=== PATIENT | female | born 1965 | race Hispanic/Latino ===

== ENCOUNTER 2017-05-15 20:41 | Observation (INO) | payer BC, OTHER ==
[2017-05-15 21:01] VITALS: BMI 28.7
--- NOTE | 2017-05-15 21:05 | ED PDOC ---
Arrival/HPI - General Time Seen by Provider: 05/15/17 20:43 Historian: Patient - History of Present Illness Narrative History of Present Illness (Text): 05/15/17 21:02 Essence Goodwin is a 51 year old female, with a history of depression, presents to the emergency department complaining of intermittent chest discomfort radiating to left hand and jaw for past couple of days. Describes quality of discomfort as a burning sensation. Denies any history of headache, dizziness, shortness of breath, fever, chills, nausea, vomiting, diarrhea, diaphoresis, urinary symptoms , or any other complaints at this time. Time/Duration: Other (couple of days ) Symptom Onset: Gradual Symptom Course: Intermittent Severity Level: Mild Activities at Onset: Light Past Medical History - Provider Review Nursing Documentation Reviewed: Yes - Infectious Disease Hx of Infectious Diseases: None - Cardiac Hx Pacemaker: No - Pulmonary Hx Asthma: Yes - Neurological Hx Paralysis: No - HEENT Hx HEENT Disorder: No - Renal Hx Renal Disorder: No - Endocrine/Metabolic Hx Endocrine Disorders: No - Hematological/Oncological Hx Blood Transfusions: No Hx Blood Transfusion Reaction: No - Integumentary Hx Dermatological Disorder: No - Musculoskeletal/Rheumatological Hx Falls: No - Gastrointestinal Hx Crohn's Disease: Yes (dx 2006) - Genitourinary/Gynecological Hx Genitourinary Disorders: No - Psychiatric Hx Substance Use: Yes (cocaine abuse clean 8 years) - Surgical History Other/Comment: rt breast lumpectomy benign, ovarian surgery, r salpingoophorectomy, prototype carpenter lap x3, 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, bakers tube - Anesthesia Hx Anesthesia Reactions: No - Suicidal Assessment Feels Threatened In Home Enviroment: No Family/Social History - Physician Review Nursing Documentation Reviewed: Yes Family/Social History: No Known Family HX Smoking Status: Former Smoker Hx Alcohol Use: No Hx Substance Use: Yes (cocaine abuse clean 8 years) Allergies/Home Meds Allergies/Adverse Reactions: Allergies codeine Allergy (Verified 09/09/16 07:21) NAUSEA Home Medications: Home Meds Medication Instructions Recorded Confirmed Escitalopram [Lexapro] 5 mg PO QAM 02/05/15 09/09/16 buPROPion [Wellbutrin] 300 mg PO QAM 02/05/15 09/09/16 clonazePAM HALF TAB [Klonopin- 0.25 mg PO BID PRN 02/05/15 09/09/16 HALF TAB] Mesalamine [Pentasa] 250 mg PO BID 09/09/16 09/09/16 Review of Systems - Physician Review All systems were reviewed & negative as marked: Yes - Review of Systems Constitutional: Normal. absent: Fatigue, Fevers Respiratory: absent: SOB, Cough, Sputum Cardiovascular: Chest Pain. absent: Palpitations Gastrointestinal: Normal. absent: Abdominal Pain, Diarrhea, Nausea, Vomiting Genitourinary Female: Normal. absent: Dysuria Musculoskeletal: Other (radiating down left arm and jaw ). absent: Back Pain, Neck Pain Neurological: Normal. absent: Headache, Dizziness Psychiatric: Normal Physical Exam Vital Signs Temp Pulse Resp BP Pulse Ox 05/15/17 21:25 98.1 F 05/15/17 21:01 77 21 142/91 H 99 Temperature: Afebrile Appearance: Positive for: Well-Appearing, Non-Toxic, Comfortable Pain Distress: None Mental Status: Positive for: Alert and Oriented X 3 - Systems Exam Head: Present: Atraumatic, Normocephalic Pupils: Present: PERRL Extroacular Muscles: Present: EOMI Conjunctiva: Present: Normal Mouth: Present: Moist Mucous Membranes Respiratory/Chest: Present: Clear to Auscultation, Good Air Exchange. No: Respiratory Distress, Accessory Muscle Use Cardiovascular: Present: Regular Rate and Rhythm, Normal S1, S2. No: Murmurs Abdomen: Present: Normal Bowel Sounds. No: Tenderness, Distention, Peritoneal Signs, Rebound, Guarding Upper Extremity: Present: Normal Inspection. No: Cyanosis, Edema Lower Extremity: Present: Normal Inspection. No: Edema Neurological: Present: GCS=15, CN II-XII Intact, Speech Normal, Motor Func Grossly Intact, Normal Sensory Function Skin: Present: Warm, Dry, Normal Color. No: Rashes Psychiatric: Present: Alert, Oriented x 3, Normal Insight, Normal Concentration Medical Decision Making ED Course and Treatment: 05/15/17 21:07 Impression: A 51 year old female who presents to the emergency department complaining of intermittent chest discomfort radiating down left arm and jaw for past couple of days. Differential Diagnosis included but are not limited to: CAD vs. ACS vs. anxiety vs. pneumonia Plan: -- EKG -- Labs, cardiac enzymes -- Chest X-ray -- Reassess and disposition Progress Notes: 05/15/17 21:27 EKG interpreted by me: NSR @ 73 bpm. Normal [place]. Normal interval. Chest X-ray interpreted by me: No acute process. 05/15/17 23:23 I reviewed the labs, and discussed the results with the patient. States that she is involved in active exercise and kick-boxing which might explain the degree of rhabdomyolysis. Patient was offered admission to the hospital for further evaluation. Will discuss with house doctor for admission. 05/15/17 23:59 Case discussed with , who is aware and agrees with the plan to observe patient at telemetry for rhabdomyolysis. Accepts patient under hospitalist service. - Lab Interpretations Lab Results: 05/15/17 22:00 05/15/17 22:00 Lab Results 05/15/17 22:00: D-Dimer, Quantitative 0.44 05/15/17 22:00: WBC 6.7 D, RBC 4.04, Hgb 11.7 L, Hct 34.6 L, MCV 85.6, MCH 29.0 , MCHC 33.8, RDW 13.1, Plt Count 381, MPV 9.1 05/15/17 22:00: Sodium 140, Potassium 3.9, Chloride 104, Carbon Dioxide 28, Anion Gap 12, BUN 10, Creatinine 0.7, Est GFR ( Amer) > 60, Est GFR (Non- Af Amer) > 60, Random Glucose 95, Calcium 9.3, Total Bilirubin 0.3, AST 209 H, ALT 171 H, Alkaline Phosphatase 86, Lactate Dehydrogenase 1164 H, Total Creatine Kinase 2705 H, CK-MB (CK-2) 17.1 H, CK-MB (CK-2) % 0.6 L, Troponin I < 0.01, Total Protein 7.0, Albumin 3.8, Globulin 3.2, Albumin/Globulin Ratio 1.2 05/15/17 22:00: PT 10.4, INR 0.96, APTT 27.8 - RAD Interpretation Radiology Orders: 05/15/17 21:28 CHEST PORTABLE [RAD] Stat - Medication Orders Current Medication Orders: Sodium Chloride (Sodium Chloride 0.9%) 1,000 mls @ 999 mls/hr IV .Q1H1M STA Stop: 05/16/17 00:22 Last Admin: 07/31/17 23:39 Dose: 999 mls/hr Discontinued Medications Aspirin (Aspirin) 325 mg PO ONCE STA Stop: 05/15/17 23:23 Last Admin: 05/15/17 23:39 Dose: 325 mg Morphine Sulfate (Morphine) 2 mg IVP STAT STA Stop: 05/15/17 23:23 Last Admin: 05/15/17 23:38 Dose: 2 mg - Scribe Statement The provider has reviewed the documentation as recorded by the Makaylaibbeba Taylor Provider Attestation: Provider Scribe Attestation: All medical record entries made by the Makaylaibbeba were at my direction and personally dictated by me. I have reviewed the chart and agree that the record accurately reflects my personal performance of the history, physical exam, medical decision making, and the department course for this patient. I have also personally directed, reviewed, and agree with the discharge instructions and disposition. Disposition/Present on Arrival - Present on Arrival Any Indicators Present on Arrival: No History of DVT/PE: No History of Uncontrolled Diabetes: No Urinary Catheter: No History Surgical Site Infection Following: None - Disposition Have Diagnosis and Disposition been Completed?: Yes Diagnosis: Chest pain, Rhabdomyolysis Disposition: HOSPITALIZED Disposition Time: 00:05 Patient Plan: Observation Condition: STABLE Discharge Instructions (ExitCare): Chest Pain (ED) Referrals: Benjamin Ceballos MD [Primary Care Provider] - Follow up with primary
[2017-05-15 22:37] LABS: HEMOGLOBIN 11.7 gm/dL (12.0-16.0); MEAN CELL VOLUME 85.6 fL (80.0-105.0); MEAN CORPUSCULAR HGB CONC 33.8 g/dl (31.0-37.0); MEAN PLATELET VOLUME 9.1 fl (7.0-11.0); RBC 4.04 10^6/uL (3.5-6.1); RED CELL DISTRIBUTION WIDTH 13.1 % (11.5-14.5); WHITE BLOOD COUNT 6.7 10^3/ul (4.5-11.0)
[2017-05-15 22:40] LABS: ALB/GLOB RATIO 1.2 (1.1-1.8); ALBUMIN 3.8 g/dL (3.0-4.8); ALT/SGPT 171 U/L (7-56); AST/SGOT 209 U/L (15-39); BLOOD UREA NITROGEN 10 mg/dL (7-21); CALCIUM 9.3 mg/dL (8.4-10.5); GFR AFRICAN-AMERICAN > 60; GFR NON-AFRICAN AMERICAN > 60
[2017-05-15 22:44] LABS: INR 0.96 (0.93-1.08); PARTIAL THROMBOPLASTIN TIME 27.8 Seconds (23.7-30.8); PROTHROMBIN TIME 10.4 Seconds (9.9-11.8)
[2017-05-15 22:54] LABS: TROPONIN I < 0.01 ng/mL
[2017-05-15 23:11] LABS: CK MB% 0.6 % (2.5-3.0); CK-MB 17.1 ng/mL (0.0-3.6)
[2017-05-15] MEDS ORDERED: Morphine 2 mg/ml ISec IVP STA (23:22)
[2017-05-15] MEDS ORDERED: Sodium Chloride 0.9% 1,000 ML IV STA (23:22)
[2017-05-16] MEDS ORDERED: Sodium Chloride 0.9% 1,000 ML IV SCH (00:48)
--- NOTE | 2017-05-16 01:56 | CP.PCM.HP ---
Addendum entered and electronically signed by Suhail Tom DO 05/16/17 07:17: Agree with Dr. Gibbs's exam and plan. 51 yo F with Crohn's, Depression, and MVP presenting with chest pain and incidentally found to have rhabdomyolysis. Undergoing ACS rule-out and pending UDS to rule out substance induced rhabdo. Pending Cardiac eval and recs. Original Note: <LOBITO GIBBS - Last Filed: 05/16/17 01:59> History of Present Illness - History of Present Illness History of Present Illness: CC: Chest pain HPI: Ms. Goodwin is a 51 year old female, with a past medical history of depression, MVP, and Crohn's Disease, who presented to the ED complaining of intermittent chest discomfort radiating to left hand and jaw for the past couple of days. She states that there was no inciting event and she experiences the pain at rest. She was seen at her PMD's office on 05/11 for this reason as well as back pain and routine lab work was drawn but no interventions were necessary at that time. She describes the pain as pressure/burning that comes and goes with radiation to left hand and left jaw line. She reports no alleviating or aggravating factors. She reports that she came in because there were "just too many things going" and out of fear due to her family history of cardiac disease. She sees a plant breeder scientist, Dr. Chapa, and has had both a normal ECHO and exercise stress test within the last year, according to patient. She states that she sees a plant breeder scientist because of her history of MVP. Currently, patient is not experiencing any chest pain. Patient was found to have a CK of over 2000 while in ED, however. She denies any headache, dizziness , shortness of breath, fever, chills, nausea, vomiting, diarrhea, urinary symptoms, or any other complaints at this time. PMH: Depression, Crohn's Disease, LBP, and MVP PSH: Rt breast lumpectomy benign, ovarian surgery, r salpingoophorectomy, sheet rock taper lap x3, 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, bakers tube FamHx: Dad-CABG x3 SocHx: Currently smokes 1/4 pack per day, drinks 1-2 bud light limes 2 days per week and is currently not using any illicit drugs (8 years clean of cocaine use) Allergies: Codeine Home Medications: Lexapro, Wellbutrin, clonazepam, mesalamine PMD: Dr. Ceballos Present on Admission - Present on Admission Any Indicators Present on Admission: No Review of Systems - Review of Systems Review of Systems: Please refer to HPI Past Patient History - Infectious Disease Hx of Infectious Diseases: None - Past Social History Smoking Status: Former Smoker - CARDIAC Hx Pacemaker: No - PULMONARY Hx Asthma: Yes - NEUROLOGICAL Hx Paralysis: No - HEENT Hx HEENT Problems: No - RENAL Hx Chronic Kidney Disease: No - ENDOCRINE/METABOLIC Hx Endocrine Disorders: No - HEMATOLOGICAL/ONCOLOGICAL Hx Blood Transfusions: No Hx Blood Transfusion Reaction: No - INTEGUMENTARY Hx Dermatological Problems: No - MUSCULOSKELETAL/RHEUMATOLOGICAL Hx Falls: No - GASTROINTESTINAL Hx Crohn's Disease: Yes (dx 2006) - GENITOURINARY/GYNECOLOGICAL Hx Genitourinary Disorders: No - PSYCHIATRIC Hx Substance Use: Yes (cocaine abuse clean 8 years) - SURGICAL HISTORY Other/Comment: rt breast lumpectomy benign, ovarian surgery, r salpingoophorectomy, sheet rock taper lap x3, 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, bakers tube - ANESTHESIA Hx Anesthesia Reactions: No Meds Allergies/Adverse Reactions: Allergies Allergy/AdvReac Type Severity Reaction Status Date / Time codeine Allergy NAUSEA Verified 09/09/16 07:21 Physical Exam - Constitutional Appears: No Acute Distress - Head Exam Head Exam: NORMAL INSPECTION, NORMOCEPHALIC - Eye Exam Eye Exam: EOMI, Normal appearance - ENT Exam ENT Exam: Mucous Membranes Moist, Normal Exam - Neck Exam Neck exam: Positive for: Full Rom. Negative for: Tenderness - Respiratory Exam Respiratory Exam: Clear to Auscultation Bilateral, NORMAL BREATHING PATTERN. absent: Rales, Rhonchi, Wheezes, Respiratory Distress - Cardiovascular Exam Cardiovascular Exam: REGULAR RHYTHM, RRR, +S1, +S2. absent: Tachycardia, Systolic Murmur - GI/Abdominal Exam GI & Abdominal Exam: Normal Bowel Sounds, Soft. absent: Distended, Firm, Guarding, Tenderness - Extremities Exam Extremities exam: Positive for: normal capillary refill, pedal pulses present. Negative for: calf tenderness, pedal edema - Neurological Exam Neurological exam: Alert, Oriented x3 - Psychiatric Exam Psychiatric exam: Normal Affect, Normal Mood - Skin Skin Exam: Dry, Intact, Normal Color, Warm Results - Vital Signs Recent Vital Signs: Last Vital Signs Temp 98.1 F 05/15/17 21:25 Pulse 74 05/16/17 00:57 Resp 16 05/16/17 00:57 BP 117/86 05/16/17 00:57 Pulse Ox 96 05/16/17 00:57 - Labs Result Diagrams: 05/15/17 22:00 05/15/17 22:00 Assessment & Plan - Assessment and Plan (Free Text) Assessment: Ms. Goodwin is a 51 year old female, with a past medical history of depression, MVP, and Crohn's Disease, who presented to the ED complaining of intermittent chest discomfort radiating to left hand and jaw for the past couple of days. Plan: 1. Chest Pain -cardiology consulted, all recs appreciated (Sammi as he sees patient in clinic ) -troponins negative x1; serial troponins pending -TSH, A1C, Lipid Panel pending -EKG showed NSR and no acute changes -CXR pending -heart healthy diet 2. Rhabdomyolisis -CK found to be 2705 on admission -IVF: NS at 150mls/hour -UDS pending 3. Elevated AST/ALT -most likely associated with rhabdo -will cont to monitor and assess as rhabdo is treated 4. History of Crohn's Disease -cont home mesalamine -currently asymptomatic 5. History of Depression/Anxiety -cont home lexapro, wellbutrin and klonopin PRN 6. GI/DVT Prophylaxis -protonix/scd's Patient seen and case discussed with attending, Dr. Quevedo. - Date & Time Date: 05/16/17 Time: 01:56 <Hermelindo Quevedo - Last Filed: 05/16/17 20:05> Results - Vital Signs Recent Vital Signs: Last Vital Signs Temp 97.1 F L 05/16/17 17:37 Pulse 67 05/16/17 18:00 Resp 18 05/16/17 17:37 BP 134/87 05/16/17 17:37 Pulse Ox 99 05/16/17 05:54 - Labs Result Diagrams: 05/16/17 04:10 05/16/17 04:10 Labs: Laboratory Results - last 24 hr 05/16/17 05/16/17 05/16/17 04:10 04:10 04:10 WBC 7.1 RBC 3.98 Hgb 11.4 L Hct 34.1 L MCV 85.7 MCH 28.6 MCHC 33.4 RDW 13.3 Plt Count 364 MPV 8.9 Gran % 34.6 L Lymph % (Auto) 49.2 H Logan % (Auto) 11.1 H Eos % (Auto) 4.1 Baso % (Auto) 1.0 Gran # 2.45 Lymph # 3.5 H Logan # 0.8 H Eos # 0.3 Baso # 0.07 Sodium 141 Potassium 4.0 Chloride 108 H Carbon Dioxide 27 Anion Gap 10 BUN 8 Creatinine 0.6 Est GFR ( Amer) > 60 Est GFR (Non-Af Amer) > 60 Random Glucose 90 Hemoglobin A1c 5.8 Calcium 8.7 Total Bilirubin 0.3 AST 154 H ALT 147 H Alkaline Phosphatase 72 Total Creatine Kinase CK-MB (CK-2) CK-MB (CK-2) % Troponin I < 0.01 Total Protein 6.4 Albumin 3.4 Globulin 3.0 Albumin/Globulin Ratio 1.1 Triglycerides 195 H Cholesterol 175 LDL Cholesterol Direct 100 HDL Cholesterol 42 TSH 3rd Generation Beta HCG, Quant Alcohol, Quantitative Hepatitis A IgM Ab Hep Bs Antigen Hep B Core IgM Ab Hepatitis C Antibody 05/16/17 05/16/17 05/16/17 04:10 05:00 05:00 WBC RBC Hgb Hct MCV MCH MCHC RDW Plt Count MPV Gran % Lymph % (Auto) Logan % (Auto) Eos % (Auto) Baso % (Auto) Gran # Lymph # Logan # Eos # Baso # Sodium Potassium Chloride Carbon Dioxide Anion Gap BUN Creatinine Est GFR ( Amer) Est GFR (Non-Af Amer) Random Glucose Hemoglobin A1c Calcium Total Bilirubin AST ALT Alkaline Phosphatase Total Creatine Kinase CK-MB (CK-2) CK-MB (CK-2) % Troponin I Total Protein Albumin Globulin Albumin/Globulin Ratio Triglycerides Cholesterol LDL Cholesterol Direct HDL Cholesterol TSH 3rd Generation 3.7 Beta HCG, Quant Alcohol, Quantitative < 10 Hepatitis A IgM Ab Negative Hep Bs Antigen Negative Hep B Core IgM Ab Negative Hepatitis C Antibody Negative 05/16/17 05/16/17 05:00 14:05 WBC RBC Hgb Hct MCV MCH MCHC RDW Plt Count MPV Gran % Lymph % (Auto) Logan % (Auto) Eos % (Auto) Baso % (Auto) Gran # Lymph # Logan # Eos # Baso # Sodium Potassium Chloride Carbon Dioxide Anion Gap BUN Creatinine Est GFR ( Amer) Est GFR (Non-Af Amer) Random Glucose Hemoglobin A1c Calcium Total Bilirubin AST ALT Alkaline Phosphatase Total Creatine Kinase 1195 H CK-MB (CK-2) 9.5 H CK-MB (CK-2) % 0.8 L Troponin I < 0.01 Total Protein Albumin Globulin Albumin/Globulin Ratio Triglycerides Cholesterol LDL Cholesterol Direct HDL Cholesterol TSH 3rd Generation Beta HCG, Quant < 2.39 Alcohol, Quantitative Hepatitis A IgM Ab Hep Bs Antigen Hep B Core IgM Ab Hepatitis C Antibody Attending/Attestation - Attestation I have personally seen and examined this patient.: Yes I have fully participated in the care of the patient.: Yes I have reviewed all pertinent clinical information: Yes Notes (Text): 05/16/17 20:05 Patient was seen when he was in bed # 8 in the ER with medical nurse. Agree with history, physical examination , assessment and plan.
[2017-05-16] MEDS ORDERED: Morphine 2 mg/ml ISec IVP STA (04:29)
[2017-05-16 04:33] LABS: BASO # 0.07 K/mm3 (0.0-2.0); EOS # 0.3 (0.0-0.7); EOS % 4.1 % (1.5-5.0); GRAN # 2.45 (1.4-6.5); GRAN % 34.6 % (50.0-68.0); HEMOGLOBIN 11.4 gm/dL (12.0-16.0); LYMPH # 3.5 (1.2-3.4); LYMPH % 49.2 % (22.0-35.0); MEAN CELL VOLUME 85.7 fL (80.0-105.0); MEAN CORPUSCULAR HEMOGLOBIN 28.6 pg (25.0-35.0); MEAN CORPUSCULAR HGB CONC 33.4 g/dl (31.0-37.0); MEAN PLATELET VOLUME 8.9 fl (7.0-11.0); MONO # 0.8 (0.1-0.6); MONO % 11.1 % (1.0-6.0); PLATELET COUNT 364 10^3/uL (120.0-450.0); RBC 3.98 10^6/uL (3.5-6.1); RED CELL DISTRIBUTION WIDTH 13.3 % (11.5-14.5); WHITE BLOOD COUNT 7.1 10^3/ul (4.5-11.0)
[2017-05-16 04:39] LABS: ALB/GLOB RATIO 1.1 (1.1-1.8); ALBUMIN 3.4 g/dL (3.0-4.8); ALT/SGPT 147 U/L (7-56); AST/SGOT 154 U/L (15-39); BLOOD UREA NITROGEN 8 mg/dL (7-21); CALCIUM 8.7 mg/dL (8.4-10.5); GFR AFRICAN-AMERICAN > 60; GFR NON-AFRICAN AMERICAN > 60; HDL CHOLESTEROL 42 mg/dL (29-60)
[2017-05-16 04:50] LABS: LDL CHOLESTEROL 100 mg/dL (0-129)
[2017-05-16 05:01] LABS: TROPONIN I < 0.01 ng/mL
--- NOTE | 2017-05-16 07:59 | RAD ---
HISTORY: chest pain COMPARISON: Portable chest 11/04/2015. FINDINGS: LUNGS: No active pulmonary disease. PLEURA: No significant pleural effusion identified, no pneumothorax apparent. CARDIOVASCULAR: Normal. OSSEOUS STRUCTURES: No significant abnormalities. VISUALIZED UPPER ABDOMEN: Normal. OTHER FINDINGS: None. IMPRESSION: No acute infiltrate or pleural effusion in the interval.
[2017-05-16] MEDS ORDERED: Aminophylline 25 mg/ml Inj ONE (09:13)
--- NOTE | 2017-05-16 10:01 | CARD ---
APPROVED REPORT EKG Measurement Heart [id number] <Conclusion> Normal sinus rhythm Normal ECG Improved repolarization c/w ECG 11/04/15
[2017-05-16 12:04] LABS: HEPATITIS B SURFACE AG NEGATIVE (NEGATIVE)
[2017-05-16 12:09] LABS: HEPATITIS A IGM NEGATIVE (NEGATIVE)
[2017-05-16 12:10] LABS: HEPATITIS B CORE AB NEGATIVE (NEGATIVE)
[2017-05-16 12:22] LABS: HEPATITIS C ANTIBODY NEGATIVE (NEGATIVE)
--- NOTE | 2017-05-16 12:28 | CARD ---
APPROVED REPORT EXAM: Two-dimensional and M-mode echocardiogram with Doppler and color Doppler. INDICATION Chest Pain 2D DIMENSIONS Left Atrium (2D)3.4 (1.6-4.0cm)IVSd1.0 (0.7-1.1cm) LVDd4.1 (3.9-5.9cm)PWd1.1 (0.7-1.1cm) LVDs2.6 (2.5-4.0cm)FS (%) 37.4 % LVEF (%)67.9 (>50%) M-Mode DIMENSIONS Aortic Root2.40 (2.2-3.7cm)Aortic Cusp Exc.1.80 (1.5-2.0cm) Aortic Valve AoV Peak [id number]/Krish Peak GR.12mmHg Mitral Valve E/A ratio0.0 TDI E/Lateral E'0.0E/Medial E'0.0 Tricuspid Valve TR Peak [id number] [id number] Peak Gr.9mmHg [id number] LEFT VENTRICLE The left ventricle is normal size. There is normal left ventricular wall thickness. The left ventricular function is normal.EF-65% There is normal LV segmental wall motion. The left ventricular diastolic function is normal. No left ventricle thrombus noted on this study. There is no ventricular septal defect visualized. There is no left ventricular aneurysm. There is no mass noted in the left ventricle. RIGHT VENTRICLE The right ventricle is normal size. There is normal right ventricular wall thickness. The right ventricular systolic function is normal. ATRIA The left atrium size is normal. The right atrium size is normal. The interatrial septum is intact with no evidence for an atrial septal defect. AORTIC VALVE The aortic valve is thickened but opens well. There is trace aortic regurgitation. There is no aortic valvular stenosis. There is no aortic valvular vegetation. MITRAL VALVE The mitral valve is thickened but opens well. Mitral regurgitation is mild. There is no mitral valve stenosis. There is no evidence of mitral valve prolapse. TRICUSPID VALVE The tricuspid valve leaflets are thickened , but open well. There is mild tricuspid regurgitation.RVSP-19 mmof Hg. There is no tricuspid valve stenosis. There is no tricuspid valve prolapse or vegetation. PULMONIC VALVE The pulmonic valve is borderline thickened. There is trace pulmonic valvular regurgitation. There is no pulmonic valvular stenosis. GREAT VESSELS The aortic root is normal in size. The ascending aorta is normal in size. The pulmonary artery is normal. The IVC is normal in size and collapses >50% with inspiration. PERICARDIAL EFFUSION There is no pleural effusion. There is no pericardial effusion. <Conclusion> Normal Chamber Size. EF-65% Mild MR/TR RVSP-19 mmof Hg.
[2017-05-16] MEDS: MESALAMINE 250 MG PO SCH ×2 (12:34→18:50)
[2017-05-16] MEDS ORDERED: oxyCODONE 10 mg ER Tab (oxyCONTIN) PO SCH (13:00)
[2017-05-16 14:34] LABS: CK MB% 0.8 % (2.5-3.0); CK-MB 9.5 ng/mL (0.0-3.6)
[2017-05-16 14:48] LABS: TROPONIN I < 0.01 ng/mL
--- NOTE | 2017-05-16 19:44 | CON ---
TYPE OF DICTATION: Consult. SERVICE: Cardiology. CONSULTING PHYSICIAN: Dr. Dillon Herrera. REASON FOR CONSULTATION: Followup cardiac evaluation, admitted with left arm pain, jaw pain, rule out angina, CAD, questionable history of multiple valve prolapse. 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 Yesterday, the patient felt jaw pain and back pain; history of significant back pain, taking oxycodone, came to the emergency room, got admitted with diagnosis of chest pain. The patient denies any chest pain as per se, but complained of numbness and pain in the left arm and jaw pain. Denies any dyspnea on exertion, denies any chest pain on exertion. PAST MEDICAL HISTORY: Significant for back pain, questionable history of mitral valve prolapse as per patient. 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 Active tobacco abuse, half a pack a day. Before used to smoke half a pack, now cut down to 5 cigarettes a day, but still actively smoking. Socially drinks. ALLERGIES: TO CODEINE. CURRENT MEDICATIONS: The patient is taking at home oxycodone/acetaminophen for tooth ache as well as back pain, Klonopin 0.5 mg b.i.d., Wellbutrin 300 mg in the morning, Pentasa 250 mg daily, Levaquin 750 mg daily, Lexapro 5 mg in the morning, acyclovir 15 g topical applied b.i.d. topical cream. PREVIOUS CARDIAC WORKUP: As follows; the patient had stress test in 05/13/2015, essentially normal myocardial perfusion study, fixed anterior apical defect most likely due to breast attenuation. The patient walked on the treadmill 10 minutes 21 seconds per Lenard protocol and stopped due to fatigue, achieved 85% of predicted heart rate. No chest pain, no ST-T changes noted dated 05/13/2015, two years ago. The patient has also echocardiography done in 11/04/2015, that showed left ventricular size normal, normal LV function, normal mitral valve structure, trace mitral regurgitation, normal tricuspid valve, RV systolic pressure of 27, calculated ejection fraction of 60%, MVP not reported in that echo, read by Dr. Samaniego dated 11/04/2015. REVIEW OF SYSTEMS: As per HPI. PHYSICAL EXAMINATION VITAL SIGNS: Temperature afebrile, heart rate 64, blood pressure 126/82. HEENT: PERRLA, extraocular muscles intact. NECK: Supple. No carotid bruit. No thyromegaly. CHEST: Clear to auscultation. HEART: S1 and S2 regular. ABDOMEN: Soft. EXTREMITIES: Clubbing, cyanosis negative. LABORATORY DATA: Blood workup as follows; WBC 7.1, hemoglobin 11.4, hemoglobin 34.1, platelet count 364. Chemistry shows sodium 141, potassium 4, chloride carbon dioxide 27, anion gap of 10, BUN 8, creatinine 0.6, troponin 0.01 x2 negative. EKG shows normal sinus rhythm, acute ST-T changes noted. IMPRESSION: A 51-year-old female with past medical history of psychotic disorder, depression. 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 Denies any chest pain. Admitted today with diagnosis of chest pain. Active tobacco abuse, questionable history of mitral valve prolapse, history or multiple pain medications. RECOMMENDATIONS: Multiple disorders, coronary artery disease, suggested to have cardiac stress test. Further recommendation after this stress test and echo. We will get the lipid profile, TSH, hemoglobin A1c. Thank you Dr. Mujica, for providing me the opportunity in taking care of the patient. We will repeat the blood work up in the morning. Dillon Herrera MD
--- NOTE | 2017-05-16 20:08 | US ---
EXAM: US Abdomen Limited, Right Upper Quadrant CLINICAL HISTORY: 51 years old, female; Pain; Abdominal pain; Additional info: Ruq pain TECHNIQUE: Real-time ultrasound of the right upper quadrant with image documentation. EXAM DATE/TIME: 05/16/2017 2:25 PM COMPARISON: Prior CT abdomen of 09/09/2016 FINDINGS: Gallbladder: Appears partially contracted, which somewhat limits evaluation. Allowing for this, there is no evidence of gallstones, pericholecystic fluid, significant gallbladder wall thickening, or a positive sonographic Rodriguez's sign. Common bile duct: Does not appear abnormally dilated, measuring less than 6 mm in diameter. Liver: Demonstrates mildly increased parenchymal echogenicity, most compatible with fatty infiltration. Measures 13.9 cm in length (normal less than 16 cm). No focal liver lesions seen. Normal flow seen in the main portal vein on color and Doppler imaging. Pancreas: Incompletely seen due to gas. Imaged portions appear unremarkable. Right kidney: Within normal limits in appearance. Measures 12 cm in length. No evidence of hydronephrosis. No renal calculi are visible sonographically. IMPRESSION: No acute abnormality identified. There is no evidence of gallstones, cholecystitis, or biliary ductal dilatation. Mild fatty infiltration of the liver. See above for remaining findings.
--- NOTE | 2017-05-16 20:59 | CARD ---
APPROVED REPORT Protocol: LEXISCAN Test Type: Lexiscan Sestamibi Stress Test Attending Physician: Dr. Dillon Chapa Referring Physician: Dr. Benjamin Ceballos Test Indications: Chest Pain Height:5 ft 3 in Weight:168lbs Medications: Wellbutrin, Klonopin, Lexapro, Pentasa, Protonix Medical History: 51 y/o female with a history of depression, mitral valve prolapse, Crohn's Disease, family history of cardiac disease Target HR: 167 bpm Resting ECG: RSR. Resting Heart Rate: 63 bpm Resting Blood Pressure: 130/80mmHg Submaximum (85%): 142 bpm PROCEDURE Pharmacologic stress testing was performed using 0.4mg per 5ml of regadenoson given intravenously over 7-10 seconds. Reversal agent aminophyline 100 mg, given intravenously for Other. POST EXERCISE Reason for Termination: Protocol completed Target HR: No Max HR: 65 bpm 56% of Maximum Predicted HR: 167 bpm Exercise duration: 00:34 min:sec, 0 Stage Exercise capacity: 1.0METs Max Blood Pressure: 130/80mmHg Blood Pressure response to exercise: normal resting BP - appropriate response Heart Rate response to exercise: appropriate Chest Pain: Yes, Burning in Chest. Angina index: 0 Arrhythmia: No, none ST Change: No, none Deviation: 0 mm TEST SUMMARY [id number]. INFUSIONDOSE 100:[id number]. [id number]. INTERPRETATION Stress EKG Conclusion: IV LEXISCAN NUCLEAR STRESS TEST DURING WHICH PATIENT FELT BURNING IN CHEST. NO ST-T CHANGES SEEN. NUCLEAR SCAN REPORT PENDING. Signed by Dillon Chapa Electronically Approved: 05/16/2017 10:41:52 EXAM: Myocardial Perfusion REST/STRESS Stress Test Type: Pharmacologic Imaging Protocol Rest Spect myocardial perfusion imaging was performed in supine position 45 minutes following the injection of 10.3 mCi of Tc-99 Myoview. At peak stress, the patient was injected intravenously with 30.4mCi of Tc-99 tetrofosmin after an infusion time of 0 minutes and 10 seconds. Gated Stress Spect was performed 65 minutes after intravenous Tc-99 Myoview injection. The images were gated to evaluate regional wall motion and calculate ventricular ejection fraction.Images were reconstructed using backfilter projection method in short horizontal and verticle long axis. Spect slices were generated. LV Perfusion The quality of the study is good. The left ventricle is normal in size. The right ventricle is unremarkable. The lung uptake is normal. The distribution of tracer reveals an area of mildly to moderately decreased perfusion involving mid to distal anteroseptal wall on the stress study. The remainder of the LV myocardium is unremarkable. The rest myocardial perfusion study shows no significant change. Wall Motion Wall motion study shows good contractility of the left ventricle. LVEF = 70%. Conclusion 1. Essentially normal SPECT myocardial perfusion study. 2. Fixed, anteroseptal defect is most likely due to breast attenuation. 3. Normal gated wall motion of the left ventricle. 4. In comparison with the last study of 05/13/2015, there is no significant change.
[2017-05-17 01:45] VITALS: RESP 20
[2017-05-17 06:12] VITALS: O2SAT 97
[2017-05-17 06:15] LABS: BASO # 0.04 K/mm3 (0.0-2.0); BASO % 0.7 % (0.0-3.0); EOS # 0.2 (0.0-0.7); EOS % 3.2 % (1.5-5.0); GRAN # 3.07 (1.4-6.5); GRAN % 51.5 % (50.0-68.0); HEMOGLOBIN 12.4 gm/dL (12.0-16.0); LYMPH # 2.2 (1.2-3.4); MEAN CELL VOLUME 85.3 fL (80.0-105.0); MEAN CORPUSCULAR HEMOGLOBIN 28.8 pg (25.0-35.0); MEAN CORPUSCULAR HGB CONC 33.8 g/dl (31.0-37.0); MONO # 0.5 (0.1-0.6); MONO % 7.6 % (1.0-6.0); PLATELET COUNT 372 10^3/uL (120.0-450.0); RED CELL DISTRIBUTION WIDTH 13.3 % (11.5-14.5)
[2017-05-17 06:28] LABS: ALB/GLOB RATIO 1.1 (1.1-1.8); ALBUMIN 3.7 g/dL (3.0-4.8); ALT/SGPT 129 U/L (7-56); AST/SGOT 95 U/L (15-39); BLOOD UREA NITROGEN 8 mg/dL (7-21); CALCIUM 9.7 mg/dL (8.4-10.5); GFR AFRICAN-AMERICAN > 60; GFR NON-AFRICAN AMERICAN > 60
[2017-05-17 06:43] LABS: CK MB% 0.9 % (2.5-3.0); CK-MB 6.3 ng/mL (0.0-3.6)
[2017-05-17] MEDS: MESALAMINE 250 MG PO SCH (10:29)
[2017-05-17 12:11] VITALS: BP 134/90; PULSE 76; TEMP 98.4
--- NOTE | 2017-05-17 12:24 | PN ---
DATE: 05/17/2017 REASON FOR CONSULTATION: Followup cardiac evaluation, admitted with left arm pain, jaw pain, rule out angina, questionable history of mitral valve prolapse. The patient is lying flat in the bed. SUBJECTIVE: Denies any chest pain, shortness of breath or any palpitation; numbness of hand improved. PHYSICAL EXAMINATION GENERAL: Lying comfortable, not in apparent distress. Examination as follows. Height of the patient 5 feet 3 inches, weight of the patient 160 pounds, body mass index 28.5 kg/m2. VITAL SIGNS: Heart rate 60, blood pressure 121/61. HEENT: PERRLA, extraocular muscles intact. NECK: Supple. No carotid bruit. No thyromegaly. CHEST: Clear to auscultation. HEART: S1 and S2, regular. ABDOMEN: Soft. EXTREMITIES: Clubbing and cyanosis negative. LABORATORY DATA: Blood workup are as follows: WBC 6, hemoglobin 12.4, hematocrit of 36.7, and platelet count 372. Chemistry shows a sodium of 141, potassium 3.9, chloride 107, carbon dioxide of 26, anion gap of 12, BUN of 8, and creatinine is 0.6. Total CPK 691, total protein 7, albumin 3.7, and albumin-globulin ratio 1.1. IMPRESSION: A 51-year-old female with past medical history significant for back pain, admitted with jaw pain, numbness, chest pain. The patient underwent a stress test and echo. Stress test showed normal myocardial perfusion study. Initial plan was to do the Myoview but the patient could not walk on the treadmill, so changed to the Lexiscan that was essentially negative and compared the last study on 05/13/2015, there is no significant change. Normal myocardial perfusion study. Normal Lexiscan. The patient underwent echocardiography also yesterday that showed normal chamber size, ejection fraction 65%, mild MR, mild TR, RV systolic pressure 19. The patient admitted with elevated CPK of 300, rhabdomyolysis, claims that she does heavy exercises kicking and boxing. Echo did not show any significant mitral valve prolapse. RECOMMENDATIONS: Continue IV fluid, discontinue telemetry, possible discharge planning, consider neuro evaluation for numbness. CVA status is stable. We will discontinue telemetry. Thank you for providing the opportunity in taking care of patient, Essence Goodwin. Dillon Herrera MD [facility] # [id number]
--- NOTE | 2017-05-17 14:56 | CP.PCM.DIS ---
<Natividad Andujar - Last Filed: 05/17/17 15:12> Provider - Provider Date of Admission: 05/16/17 00:02 Attending physician: Jj Mujica MD Primary care physician: Benjamin Ceballos MD Consults: Cardiology: Sammi Time Spent in preparation of Discharge (in minutes): 30 Diagnosis - Discharge Diagnosis (1) Chest pain Status: Acute (2) Rhabdomyolysis Status: Acute Hospital Course - Lab Results Lab Results: Most Recent Lab Values WBC 6.0 10^3/ul (4.5-11.0) 05/17/17 05:40 RBC 4.30 10^6/uL (3.5-6.1) 05/17/17 05:40 Hgb 12.4 gm/dL (12.0-16.0) 05/17/17 05:40 Hct 36.7 % (36.0-48.0) 05/17/17 05:40 MCV 85.3 fL (80.0-105.0) 05/17/17 05:40 MCH 28.8 pg (25.0-35.0) 05/17/17 05:40 MCHC 33.8 g/dl (31.0-37.0) 05/17/17 05:40 RDW 13.3 % (11.5-14.5) 05/17/17 05:40 Plt Count 372 10^3/uL (120.0-450.0) 05/17/17 05:40 MPV 9.0 fl (7.0-11.0) 05/17/17 05:40 Gran % 51.5 % (50.0-68.0) 05/17/17 05:40 Lymph % (Auto) 37.0 % (22.0-35.0) H 05/17/17 05:40 Grand % (Auto) 7.6 % (1.0-6.0) H 05/17/17 05:40 Eos % (Auto) 3.2 % (1.5-5.0) 05/17/17 05:40 Baso % (Auto) 0.7 % (0.0-3.0) 05/17/17 05:40 Gran # 3.07 (1.4-6.5) 05/17/17 05:40 Lymph # 2.2 (1.2-3.4) 05/17/17 05:40 Grand # 0.5 (0.1-0.6) 05/17/17 05:40 Eos # 0.2 (0.0-0.7) 05/17/17 05:40 Baso # 0.04 K/mm3 (0.0-2.0) 05/17/17 05:40 PT 10.4 Seconds (9.9-11.8) 05/15/17 22:00 INR 0.96 (0.93-1.08) 05/15/17 22:00 APTT 27.8 Seconds (23.7-30.8) 05/15/17 22:00 D-Dimer, Quantitative 0.44 mg/L FEU (0-0.50) 05/15/17 22:00 Sodium 141 mmol/L (132-148) 05/17/17 05:40 Potassium 3.9 mmol/L (3.6-5.0) 05/17/17 05:40 Chloride 107 mmol/L (98-107) 05/17/17 05:40 Carbon Dioxide 26 mmol/L (21-33) 05/17/17 05:40 Anion Gap 12 (10-20) 05/17/17 05:40 BUN 8 mg/dL (7-21) 05/17/17 05:40 Creatinine 0.6 mg/dL (0.5-1.4) 05/17/17 05:40 Est GFR ( Amer) > 60 05/17/17 05:40 Est GFR (Non-Af Amer) > 60 05/17/17 05:40 Random Glucose 103 mg/dL (70-110) 05/17/17 05:40 Hemoglobin A1c 5.8 % (4.2-6.5) 05/16/17 04:10 Calcium 9.7 mg/dL (8.4-10.5) 05/17/17 05:40 Total Bilirubin 0.4 mg/dL (0.2-1.3) 05/17/17 05:40 AST 95 U/L (15-39) H 05/17/17 05:40 ALT 129 U/L (7-56) H 05/17/17 05:40 Alkaline Phosphatase 87 U/L (38-133) 05/17/17 05:40 Lactate Dehydrogenase 1164 U/L (333-699) H 05/15/17 22:00 Total Creatine Kinase 691 U/L (35-230) H 05/17/17 05:40 CK-MB (CK-2) 6.3 ng/mL (0.0-3.6) H 05/17/17 05:40 CK-MB (CK-2) % 0.9 % (2.5-3.0) L 05/17/17 05:40 Troponin I < 0.01 ng/mL 05/16/17 14:05 Total Protein 7.0 g/dL (5.8-8.3) 05/17/17 05:40 Albumin 3.7 g/dL (3.0-4.8) 05/17/17 05:40 Globulin 3.3 gm/dL 05/17/17 05:40 Albumin/Globulin Ratio 1.1 (1.1-1.8) 05/17/17 05:40 Triglycerides 195 mg/dL (35-160) H 05/16/17 04:10 Cholesterol 175 mg/dL (130-200) 05/16/17 04:10 LDL Cholesterol Direct 100 mg/dL (0-129) 05/16/17 04:10 HDL Cholesterol 42 mg/dL (29-60) 05/16/17 04:10 TSH 3rd Generation 3.7 MIU/ml (0.46-4.68) 05/16/17 04:10 Beta HCG, Quant < 2.39 mIU/mL (0-6.15) 05/16/17 05:00 Alcohol, Quantitative < 10 mg/dL (0-10) 05/16/17 05:00 Hepatitis A IgM Ab Negative (NEGATIVE) 05/16/17 05:00 Hep Bs Antigen Negative (NEGATIVE) 05/16/17 05:00 Hep B Core IgM Ab Negative (NEGATIVE) 05/16/17 05:00 Hepatitis C Antibody Negative (NEGATIVE) 05/16/17 05:00 - Hospital Course Hospital Course: 51 year old female, with a past medical history of depression, MVP, and Crohn's Disease, who presented to the ED complaining of intermittent chest discomfort radiating to left hand and jaw for the past couple of days. She states that there was no inciting event and she experiences the pain at rest. She was seen at her PMD's office on 05/11 for this reason as well as back pain and routine lab work was drawn but no interventions were necessary at that time. She describes the pain as pressure/burning that comes and goes with radiation to left hand and left jaw line. She reports no alleviating or aggravating factors. She reports that she came in because there were "just too many things going" and out of fear due to her family history of cardiac disease. 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 Chapa, and has had both a normal ECHO and exercise stress test within the last year, according to patient. She states that she sees a supervisor tumbling and rolling because of her history of MVP. Patient was found to have an elevated CPK at 2705. Was admitted for chest pain r /o ACS and rhabdomyolysis. Patient was monitored on Telemetry, EKG showed NSR. Troponins were negative x 3 and D-Dimer was negative. Cardiology was consulted. Patient was sent for Stress Test which showed no significant changes from previous study. Patient was started on IV fluids @ 150cc/hr. CPK levels were trended and decreased to 691. Patient was found to have elevated LFTs, abdominal US showed mild fatty infiltration of liver. LFTs were trending down. UDS was ordered for this patient, however she refused to give sample. For back pain, patient was started on Motrin 600mg Q6H with improvement. ACS was ultimately ruled out. Patient was medically stable upon discharge. Instructed to follow up with PMD and cardiology within 1 week. Patient reports that she also have an appointment to see Neurology for numbness in her hands. All questions and concerns were addressed. Discharge Exam - Head Exam Head Exam: NORMAL INSPECTION, NORMOCEPHALIC - Eye Exam Eye Exam: EOMI, Normal appearance Pupil Exam: NORMAL ACCOMODATION - ENT Exam ENT Exam: Mucous Membranes Moist - Neck Exam Neck exam: Full Rom - Respiratory Exam Respiratory Exam: Clear to PA & Lateral, NORMAL BREATHING PATTERN. absent: Rales, Rhonchi, Wheezes - Cardiovascular Exam Cardiovascular Exam: REGULAR RHYTHM, +S1, +S2 - GI/Abdominal Exam GI & Abdominal Exam: Normal Bowel Sounds, Soft. absent: Rebound, Rigid, Tenderness - Extremities Exam Extremities exam: normal inspection, pedal pulses present - Back Exam Back exam: NORMAL INSPECTION - Neurological Exam Neurological exam: Alert, Normal Gait, Oriented x3 - Psychiatric Exam Psychiatric exam: Normal Affect, Normal Mood - Skin Skin Exam: Normal Color, Warm Discharge Plan - Follow Up Plan Condition: STABLE Disposition: HOME/ ROUTINE Instructions: Chest Pain (GEN), Rhabdomyolysis (GEN) Additional Instructions: Patient is clear for discharge home, encourage PO hydration, Motrin OTC prn pain , f/u with PMD and cardiology within 1 week, patient has an appt to see neurology Referrals: Benjamin Ceballos MD [Primary Care Provider] - <Jj Mujica - Last Filed: 05/17/17 18:39> Provider - Provider Date of Admission: 05/16/17 00:02 Attending physician: Jj Mujica MD Primary care physician: Benjamin Ceballos MD Time Spent in preparation of Discharge (in minutes): 35 Hospital Course - Lab Results Lab Results: Most Recent Lab Values WBC 6.0 10^3/ul (4.5-11.0) 05/17/17 05:40 RBC 4.30 10^6/uL (3.5-6.1) 05/17/17 05:40 Hgb 12.4 gm/dL (12.0-16.0) 05/17/17 05:40 Hct 36.7 % (36.0-48.0) 05/17/17 05:40 MCV 85.3 fL (80.0-105.0) 05/17/17 05:40 MCH 28.8 pg (25.0-35.0) 05/17/17 05:40 MCHC 33.8 g/dl (31.0-37.0) 05/17/17 05:40 RDW 13.3 % (11.5-14.5) 05/17/17 05:40 Plt Count 372 10^3/uL (120.0-450.0) 05/17/17 05:40 MPV 9.0 fl (7.0-11.0) 05/17/17 05:40 Gran % 51.5 % (50.0-68.0) 05/17/17 05:40 Lymph % (Auto) 37.0 % (22.0-35.0) H 05/17/17 05:40 Grand % (Auto) 7.6 % (1.0-6.0) H 05/17/17 05:40 Eos % (Auto) 3.2 % (1.5-5.0) 05/17/17 05:40 Baso % (Auto) 0.7 % (0.0-3.0) 05/17/17 05:40 Gran # 3.07 (1.4-6.5) 05/17/17 05:40 Lymph # 2.2 (1.2-3.4) 05/17/17 05:40 Grand # 0.5 (0.1-0.6) 05/17/17 05:40 Eos # 0.2 (0.0-0.7) 05/17/17 05:40 Baso # 0.04 K/mm3 (0.0-2.0) 05/17/17 05:40 PT 10.4 Seconds (9.9-11.8) 05/15/17 22:00 INR 0.96 (0.93-1.08) 05/15/17 22:00 APTT 27.8 Seconds (23.7-30.8) 05/15/17 22:00 D-Dimer, Quantitative 0.44 mg/L FEU (0-0.50) 05/15/17 22:00 Sodium 141 mmol/L (132-148) 05/17/17 05:40 Potassium 3.9 mmol/L (3.6-5.0) 05/17/17 05:40 Chloride 107 mmol/L (98-107) 05/17/17 05:40 Carbon Dioxide 26 mmol/L (21-33) 05/17/17 05:40 Anion Gap 12 (10-20) 05/17/17 05:40 BUN 8 mg/dL (7-21) 05/17/17 05:40 Creatinine 0.6 mg/dL (0.5-1.4) 05/17/17 05:40 Est GFR ( Amer) > 60 05/17/17 05:40 Est GFR (Non-Af Amer) > 60 05/17/17 05:40 Random Glucose 103 mg/dL (70-110) 05/17/17 05:40 Hemoglobin A1c 5.8 % (4.2-6.5) 05/16/17 04:10 Calcium 9.7 mg/dL (8.4-10.5) 05/17/17 05:40 Total Bilirubin 0.4 mg/dL (0.2-1.3) 05/17/17 05:40 AST 95 U/L (15-39) H 05/17/17 05:40 ALT 129 U/L (7-56) H 05/17/17 05:40 Alkaline Phosphatase 87 U/L (38-133) 05/17/17 05:40 Lactate Dehydrogenase 1164 U/L (333-699) H 05/15/17 22:00 Total Creatine Kinase 691 U/L (35-230) H 05/17/17 05:40 CK-MB (CK-2) 6.3 ng/mL (0.0-3.6) H 05/17/17 05:40 CK-MB (CK-2) % 0.9 % (2.5-3.0) L 05/17/17 05:40 Troponin I < 0.01 ng/mL 05/16/17 14:05 Total Protein 7.0 g/dL (5.8-8.3) 05/17/17 05:40 Albumin 3.7 g/dL (3.0-4.8) 05/17/17 05:40 Globulin 3.3 gm/dL 05/17/17 05:40 Albumin/Globulin Ratio 1.1 (1.1-1.8) 05/17/17 05:40 Triglycerides 195 mg/dL (35-160) H 05/16/17 04:10 Cholesterol 175 mg/dL (130-200) 05/16/17 04:10 LDL Cholesterol Direct 100 mg/dL (0-129) 05/16/17 04:10 HDL Cholesterol 42 mg/dL (29-60) 05/16/17 04:10 TSH 3rd Generation 3.7 MIU/ml (0.46-4.68) 05/16/17 04:10 Beta HCG, Quant < 2.39 mIU/mL (0-6.15) 05/16/17 05:00 Alcohol, Quantitative < 10 mg/dL (0-10) 05/16/17 05:00 Hepatitis A IgM Ab Negative (NEGATIVE) 05/16/17 05:00 Hep Bs Antigen Negative (NEGATIVE) 05/16/17 05:00 Hep B Core IgM Ab Negative (NEGATIVE) 05/16/17 05:00 Hepatitis C Antibody Negative (NEGATIVE) 05/16/17 05:00 Attending/Attestation - Attestation I have personally seen and examined this patient.: Yes I have fully participated in the care of the patient.: Yes I have reviewed all pertinent clinical information, including history, physical exam and plan: Yes Notes (Text): 05/17/17 18:32 51 year old female with past medical history of MVP, anxiety and alcohol/ substance abuse who presented with complaint of chest pain and left arm numbness. She was found to have elevated LFTs and rhabdomyolysis which improved with iv fluids. She denied any recent alcohol or drug abuse but refused to give urine drug screen. She was counselled on risks of any alcohol or substance abuse. She was seen by cardiology and had stress test which was essentially negative. Her symptoms improved. She is discharged home to follow up with her pmd. She states she has neurology appointment as well for evaluation for neuropathy. Jj Mujica MD Hospitalist.
== END 2017-05-17 14:13 | disposition home or self-care (01) ==
LOC: ED 20:41 → ERH 05-16 00:02 → 2RNO 05-16 01:22
PROVIDERS: ADMIT Internal Medicine; ATTEND Internal Medicine
DX: R07.89 Other chest pain (principal); M62.82 Rhabdomyolysis; K50.90 Crohn's disease, unspecified, without complications; F32.9 Major depressive disorder, single episode, unspecified; I34.1 Nonrheumatic mitral (valve) prolapse; F41.9 Anxiety disorder, unspecified; M54.9 Dorsalgia, unspecified; F17.210 Nicotine dependence, cigarettes, uncomplicated
CPT/HCPCS: 36415; 71010; 76705; 78452; 80053; 80061; 80074; 82550; 82553; 83036; 83615; 84443; 84484; 84702; 85025; 85027; 85378; 85610; 85730; 93005; 93017; 93306; 96361; 96374; 96375; 96376; 99285; A9502; C9113; G0378; G0480; J0280; J2270; J2785; J7040

== ENCOUNTER 2017-10-04 13:34 | Inpatient (IN) | payer OTHER ==
[2017-10-04 13:35] VITALS: BMI 28.7
--- NOTE | 2017-10-04 14:19 | ED PDOC ---
Arrival/HPI - General Chief Complaint: Substance Abuse Time Seen by Provider: 10/04/17 13:40 - History of Present Illness Narrative History of Present Illness (Text): 10/04/17 14:16 hx per daughter who states pt with history of depression who took about 15-20 tabs of 0.5mg clonazepam about 1 hour prior to ed visit with alcohol 4 beers for depression and stated wanting to kill herself. no head injury/fall or other symptoms. PMD: Dr. Ceballos Past Medical History - Provider Review Nursing Documentation Reviewed: Yes - Travel History Have you recently traveled outside [place] w/in the past 3 mons?: No - Infectious Disease Hx of Infectious Diseases: None - Reproductive Menopause: Yes - Cardiac Hx Pacemaker: No - Pulmonary Hx Asthma: Yes - Neurological Hx Paralysis: No - HEENT Hx HEENT Disorder: No - Renal Hx Renal Disorder: No - Endocrine/Metabolic Hx Endocrine Disorders: No - Hematological/Oncological Hx Blood Transfusions: No Hx Blood Transfusion Reaction: No - Integumentary Hx Dermatological Disorder: No - Musculoskeletal/Rheumatological Hx Falls: No - Gastrointestinal Hx Crohn's Disease: Yes (dx 2006) - Genitourinary/Gynecological Hx Genitourinary Disorders: No - Psychiatric Hx Psychophysiologic Disorder: Yes (hx cocaine use 8 years ago) Hx Anxiety: Yes Hx Bipolar Disorder: No Hx Depression: Yes Hx Emotional Abuse: No Hx Hallucinations: No Hx Panic Disorder: No Hx Post Traumatic Stress Disorder: No Hx Psychosis: No Hx Physical Abuse: No Hx Schizophrenia: No Hx Sexual Abuse: No Hx Substance Use: Yes (cocaine abuse clean 8 years) - Surgical History Other/Comment: rt breast lumpectomy benign, ovarian surgery, r salpingoophorectomy, 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, 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, bakers tube - Anesthesia Hx Anesthesia Reactions: No - Suicidal Assessment Feels Threatened In Home Enviroment: No Family/Social History - Physician Review Nursing Documentation Reviewed: Yes Family/Social History: No Known Family HX Smoking Status: Former Smoker Hx Alcohol Use: Yes (occassional alcohol) Hx Substance Use: Yes (cocaine abuse clean 8 years) Allergies/Home Meds Allergies/Adverse Reactions: Allergies codeine Allergy (Verified 09/09/16 07:21) NAUSEA Home Medications: Home Meds Medication Instructions Recorded Confirmed Escitalopram [Lexapro] 5 mg PO QAM 02/05/15 05/16/17 buPROPion [Wellbutrin] 300 mg PO QAM 02/05/15 05/16/17 clonazePAM HALF TAB [Klonopin- 0.25 mg PO BID PRN 02/05/15 05/16/17 HALF TAB] Review of Systems - Review of Systems Systems not reviewed;Unavailable: Intoxicated Constitutional: Normal Eyes: Normal Physical Exam Vital Signs Reviewed: Yes Vital Signs Temp Pulse Resp BP Pulse Ox 10/04/17 17:00 77 20 130/89 98 10/04/17 15:50 79 24 131/76 94 L 10/04/17 14:06 97.6 F 81 20 126/78 93 L Temperature: Afebrile Blood Pressure: Hypertensive Pulse: Regular Respiratory Rate: Normal Appearance: Positive for: Well-Appearing, Non-Toxic, Comfortable Pain Distress: None Mental Status: Positive for: other (intoxicated) - Systems Exam Head: Present: Atraumatic, Normocephalic Pupils: Present: PERRL Conjunctiva: Present: Normal Ears: Present: Normal Mouth: Present: Moist Mucous Membranes Pharnyx: Present: Normal Nose (External): Present: Atraumatic Nose (Internal): Present: Normal Inspection Respiratory/Chest: Present: Clear to Auscultation, Good Air Exchange Cardiovascular: Present: Regular Rate and Rhythm Abdomen: No: Tenderness, Distention, Normal Bowel Sounds, Peritoneal Signs, Rebound, Guarding, McBurney's Point Tender, Rovsing's Sign Present, Hernias, Feeding Tubes, Ostomy Tubes, Mass/Organomegaly, Scars, Other Back: Present: Normal Inspection, Other (no cervical or thoracic or lumbar spinal or paraspinal tenderness) Upper Extremity: Present: Normal Inspection Lower Extremity: Present: Normal Inspection Neurological: Present: Other (intoxicated) Psychiatric: Present: Other (intoxicated) Medical Decision Making ED Course and Treatment: hx per daughter who states pt with history of depression who took about 15-20 tabs of 0.5mg clonazepam about 1240p prior to ed visit with alcohol 4 beers for depression and stated wanting to kill herself. no head injury/fall or other symptoms. 10/04/17 14:21 10/04/17 14:42 nurse prashant spoke to poison control who stated 3-4 hours repeat ecg, awaiting lab work, monitor and supportive care. 10/04/17 15:14 You were otherwise breathing easily, clear lungs, no abdomen tenderness, no fever temp 97.6, stable heart rate 81, stable breathing rate 20, stable oxygen level 93% on oxygen, elevated blood pressure 126/78 which we recommend repeat in 2-3 days primary care office to determine further treatment, you have blood tests mild infection count 15.7, stable blood level hemoglobin 12.9/platelets 463, elevated CK 3363 with ivf hydration, liver AST/ALT 92/71, Liver bilirubin 0.4, alcohol level 75, salicylate negative, acetaminophen negative, heart blood test pending, urine test negative, urine test neg, radiology chest xray shallow lung volumes w borderline pulmonary vasculature, ECG normal sinus rhythm x2, observation done in the ED with alertness. 10/04/2017 14:38 Chest X-ray IMPRESSION: Shallow lung volumes limiting optimal evaluation. Borderline prominent central pulmonary vasculature. Dictator: Jessica Mendoza MD 10/04/17 15:44 d/w PES who stated due to pt intoxication will have the next team after 5pm come and eval. they will notify the next team at this time. 10/04/17 17:56 10/04/17 17:57 10/04/17 18:04 repeat EC: similar to prior: Qt 430/Qtc [address] Jj Banda pt suicidal attempt, pt alert/oriented now, wo sob/chest pain , ck 3363 with ivf hydration, pending trop. will admit for observation. PES evaluating pt at this time. - Lab Interpretations Lab Results: 10/04/17 14:45 10/04/17 14:30 Lab Results 10/04/17 17:09: Urine Opiates Screen Negative, Urine Methadone Screen Negative, Ur Barbiturates Screen Negative, Ur Phencyclidine Scrn Negative, Ur Amphetamines Screen Negative, U Benzodiazepines Scrn Negative, U Oth Cocaine Metabols Pending, U Cannabinoids Screen Negative 10/04/17 17:09: Urine Color Yellow, Urine Appearance Clear, Urine pH 6.0, Ur Specific [place] 1.010, Urine Protein Negative, Urine Glucose (UA) Negative, Urine Ketones Negative, Urine Blood Negative, Urine Nitrate Negative, Urine Bilirubin Negative, Urine Urobilinogen 0.2, Ur Leukocyte Esterase Negative, Urine HCG, Qual Negative 10/04/17 14:45: WBC 15.7 H D, RBC 4.34, Hgb 12.9, Hct 38.1, MCV 87.8, MCH 29.7, MCHC 33.9, RDW 13.3, Plt Count 463 H, MPV 9.1, Gran % 72.6 H, Lymph % (Auto) 20.9 L, [place] % (Auto) 5.7, Eos % (Auto) 0.5 L, Baso % (Auto) 0.3, Gran # 11.42 H , Lymph # 3.3, [place] # 0.9 H, Eos # 0.1, Baso # 0.05 10/04/17 14:30: Alcohol, Quantitative 75 H 10/04/17 14:30: Salicylates < 1 L, Acetaminophen < 10.0 L 10/04/17 14:30: Sodium 142, Potassium 4.3, Chloride 105, Carbon Dioxide 24, Anion Gap 17, BUN 8, Creatinine 0.7, Est GFR ( Amer) > 60, Est GFR (Non- Af Amer) > 60, Random Glucose 76, Calcium 10.1, Total Bilirubin 0.4, AST 92 H, ALT 71 H, Alkaline Phosphatase 116, Total Creatine Kinase 3363 H, CK-MB (CK-2) Pending, CK-MB (CK-2) % Pending, Troponin I Pending, Total Protein 7.7, Albumin 4.5, Globulin 3.2, Albumin/Globulin Ratio 1.4 I have reviewed the lab results: Yes - RAD Interpretation Radiology Orders: 10/04/17 14:13 CHEST PORTABLE [RAD] Stat Wet Wheeler: Radiologist - EKG Interpretation Interpreted by ED Physician: Yes (NSR, flipped t waves avr, flattend iii, v4, Qt 410/Qtc 472) Type: 12 lead EKG - Medication Orders Current Medication Orders: Sodium Chloride (Sodium Chloride 0.9%) 1,000 mls @ 150 mls/hr IV .Q6H40M [facility] Disposition/Present on Arrival - Present on Arrival Any Indicators Present on Arrival: No History of DVT/PE: No History of Uncontrolled Diabetes: No Urinary Catheter: No History of Decub. Ulcer: No History Surgical Site Infection Following: None - Disposition Have Diagnosis and Disposition been Completed?: Yes Diagnosis: Rhabdomyolysis, Overdose, Suicide attempt Disposition Time: 18:08 Patient Plan: Admission Condition: IMPROVED Referrals: Benjamin Ceballos MD [Primary Care Provider] - Follow up with primary Forms: [employer] ([place]an)
--- NOTE | 2017-10-04 14:39 | RAD ---
HISTORY: 51yoF overdose COMPARISON: 05/15/2017 FINDINGS: LUNGS: No consolidation Current lung volumes more shallow PLEURA: No significant pleural effusion identified, no pneumothorax apparent. CARDIOVASCULAR: Top-normal. Central pulmonary vasculature borderline prominent- probably in part due to crowding OSSEOUS STRUCTURES: No significant abnormalities. VISUALIZED UPPER ABDOMEN: Normal. OTHER FINDINGS: None. IMPRESSION: Shallow lung volumes limiting optimal evaluation. Borderline prominent central pulmonary vasculature
[2017-10-04 14:54] LABS: BASO # 0.05 K/mm3 (0.0-2.0); BASO % 0.3 % (0.0-3.0); EOS # 0.1 (0.0-0.7); EOS % 0.5 % (1.5-5.0); GRAN # 11.42 (1.4-6.5); GRAN % 72.6 % (50.0-68.0); HEMATOCRIT 38.1 % (36.0-48.0); LYMPH # 3.3 (1.2-3.4); LYMPH % 20.9 % (22.0-35.0); MEAN CELL VOLUME 87.8 fl (80.0-105.0); MEAN CORPUSCULAR HEMOGLOBIN 29.7 pg (25.0-35.0); MEAN CORPUSCULAR HGB CONC 33.9 g/dl (31.0-37.0); MEAN PLATELET VOLUME 9.1 fl (7.0-11.0); MONO # 0.9 (0.1-0.6); MONO % 5.7 % (1.0-6.0); RED CELL DISTRIBUTION WIDTH 13.3 % (11.5-14.5); WHITE BLOOD COUNT 15.7 10^3/ul (4.5-11.0)
[2017-10-04 15:48] LABS: ALB/GLOB RATIO 1.4 (1.1-1.8); ALKALINE PHOSPHATASE 116 U/L (38-126); ALT/SGPT 71 U/L (7-56); AST/SGOT 92 U/L (14-36); BILIRUBIN,TOTAL 0.4 mg/dL (0.2-1.3); BLOOD UREA NITROGEN 8 mg/dL (7-21); CALCIUM 10.1 mg/dL (8.4-10.5); CARBON DIOXIDE 24 mmol/L (21-33); CHLORIDE 105 mmol/L (98-107); GFR AFRICAN-AMERICAN > 60; GLUCOSE,RANDOM 76 mg/dL (70-110); POTASSIUM 4.3 mmol/L (3.6-5.0); SODIUM 142 mmol/L (132-148); TOTAL PROTEIN 7.7 g/dL (5.8-8.3)
[2017-10-04 17:28] LABS: URINE BILIRUBIN NEGATIVE (NEGATIVE); URINE BLOOD NEGATIVE (NEGATIVE); URINE GLUCOSE (UA) NEGATIVE (NEGATIVE); URINE KETONE NEGATIVE (NEGATIVE); URINE LEUKOCYTE ESTERASE NEGATIVE Leu/uL (NEGATIVE); URINE PROTEIN NEGATIVE mg/dL (<30 mg/dL); URINE UROBILINOGEN 0.2 E.U./dL (<1 E.U./dL)
[2017-10-04 17:33] LABS: URINE APPEARANCE CLEAR (CLEAR); URINE COLOR YELLOW (YELLOW)
[2017-10-04 18:05] LABS: TROPONIN I < 0.01 ng/mL
--- NOTE | 2017-10-04 19:09 | CP.PCM.HP ---
<Elbert Murillo - Last Filed: 10/04/17 20:06> History of Present Illness - History of Present Illness History of Present Illness: Medicine H&P CC: Overdose / SI 51F with pmh of Depression, Crohn's Disease, LBP, and MVP presents SI and overdose on klonopin. Pt states that last night she smoked cocaine (after she was clean for a long time) and this morning she took around 20 pills of Klonopin with intention of suicide. Patient states that she is severely depressed these past few days. She has attempted suicide before but "many years ago." She denies any homicidal ideation. No other complaints at this time. 12 Point ROS performed and negative other than stated above. 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, 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, bakers tube FamHx: Dad-CABG x3, DM SocHx: Currently smokes 1/4 PPD, denies drinking, and + Cocaine (8 years clean of cocaine use) All: Codeine Home Medications: Lexapro, Wellbutrin, clonazepam, mesalamine Present on Admission - Present on Admission Any Indicators Present on Admission: No Review of Systems - Review of Systems All systems: reviewed and no additional remarkable complaints except Past Patient History - Infectious Disease Hx of Infectious Diseases: None - Past Social History Smoking Status: Former Smoker - CARDIAC Hx Pacemaker: No - PULMONARY Hx Asthma: Yes - NEUROLOGICAL Hx Paralysis: No - HEENT Hx HEENT Problems: No - RENAL Hx Chronic Kidney Disease: No - ENDOCRINE/METABOLIC Hx Endocrine Disorders: No - HEMATOLOGICAL/ONCOLOGICAL Hx Blood Transfusions: No Hx Blood Transfusion Reaction: No - INTEGUMENTARY Hx Dermatological Problems: No - MUSCULOSKELETAL/RHEUMATOLOGICAL Hx Falls: No - GASTROINTESTINAL Hx Crohn's Disease: Yes (dx 2006) - GENITOURINARY/GYNECOLOGICAL Hx Genitourinary Disorders: No - PSYCHIATRIC Hx Psychophysiologic Disorder: Yes (hx cocaine use 8 years ago) Hx Anxiety: Yes Hx Bipolar Disorder: No Hx Depression: Yes Hx Emotional Abuse: No Hx Hallucinations: No Hx Panic Symptoms: No Hx Post Traumatic Stress Disorder: No Hx Psychosis: No Hx Physical Abuse: No Hx Schizophrenia: No Hx Sexual Abuse: No Hx Substance Use: Yes (cocaine abuse clean 8 years) - SURGICAL HISTORY Other/Comment: rt breast lumpectomy benign, ovarian surgery, r salpingoophorectomy, 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 absent: Wheezes - Cardiovascular Exam Cardiovascular Exam: REGULAR RHYTHM, RRR, +S1, +S2 - GI/Abdominal Exam GI & Abdominal Exam: Normal Bowel Sounds, Soft. absent: Tenderness - Extremities Exam Extremities exam: Negative for: calf tenderness, pedal edema - Neurological Exam Neurological exam: Alert, Oriented x3 - Psychiatric Exam Psychiatric exam: Normal Affect, Normal Mood - Skin Skin Exam: Dry, Intact, Warm Results - Vital Signs Recent Vital Signs: Last Vital Signs Temp 97.6 F 10/04/17 14:06 Pulse 77 10/04/17 17:00 Resp 20 10/04/17 17:00 BP 130/89 10/04/17 17:00 Pulse Ox 98 10/04/17 17:00 - Labs Result Diagrams: 10/04/17 14:45 10/04/17 14:30 Labs: Laboratory Results - last 24 hr 10/04/17 10/04/17 10/04/17 14:30 14:30 14:30 WBC RBC Hgb Hct MCV MCH MCHC RDW Plt Count MPV Gran % Lymph % (Auto) [place] % (Auto) Eos % (Auto) Baso % (Auto) Gran # Lymph # [place] # Eos # Baso # Sodium 142 Potassium 4.3 Chloride 105 Carbon Dioxide 24 Anion Gap 17 BUN 8 Creatinine 0.7 Est GFR ( Amer) > 60 Est GFR (Non-Af Amer) > 60 Random Glucose 76 Calcium 10.1 Total Bilirubin 0.4 AST 92 H ALT 71 H Alkaline Phosphatase 116 Total Creatine Kinase 3363 H CK-MB (CK-2) 21.6 H CK-MB (CK-2) % 0.6 L Troponin I < 0.01 Total Protein 7.7 Albumin 4.5 Globulin 3.2 Albumin/Globulin Ratio 1.4 Urine Color Urine Appearance Urine pH Ur Specific [place] Urine Protein Urine Glucose (UA) Urine Ketones Urine Blood Urine Nitrate Urine Bilirubin Urine Urobilinogen Ur Leukocyte Esterase Urine HCG, Qual Salicylates < 1 L Urine Opiates Screen Urine Methadone Screen Acetaminophen < 10.0 L Ur Barbiturates Screen Ur Phencyclidine Scrn Ur Amphetamines Screen U Benzodiazepines Scrn U Oth Cocaine Metabols U Cannabinoids Screen Alcohol, Quantitative 75 H 10/04/17 10/04/17 10/04/17 14:45 17:09 17:09 WBC 15.7 H D RBC 4.34 Hgb 12.9 Hct 38.1 MCV 87.8 MCH 29.7 MCHC 33.9 RDW 13.3 Plt Count 463 H MPV 9.1 Gran % 72.6 H Lymph % (Auto) 20.9 L [place] % (Auto) 5.7 Eos % (Auto) 0.5 L Baso % (Auto) 0.3 Gran # 11.42 H Lymph # 3.3 [place] # 0.9 H Eos # 0.1 Baso # 0.05 Sodium Potassium Chloride Carbon Dioxide Anion Gap BUN Creatinine Est GFR ( Amer) Est GFR (Non-Af Amer) Random Glucose Calcium Total Bilirubin AST ALT Alkaline Phosphatase Total Creatine Kinase CK-MB (CK-2) CK-MB (CK-2) % Troponin I Total Protein Albumin Globulin Albumin/Globulin Ratio Urine Color Yellow Urine Appearance Clear Urine pH 6.0 Ur Specific [place] 1.010 Urine Protein Negative Urine Glucose (UA) Negative Urine Ketones Negative Urine Blood Negative Urine Nitrate Negative Urine Bilirubin Negative Urine Urobilinogen 0.2 Ur Leukocyte Esterase Negative Urine HCG, Qual Negative Salicylates Urine Opiates Screen Negative Urine Methadone Screen Negative Acetaminophen Ur Barbiturates Screen Negative Ur Phencyclidine Scrn Negative Ur Amphetamines Screen Negative U Benzodiazepines Scrn Negative U Oth Cocaine Metabols Positive H U Cannabinoids Screen Negative Alcohol, Quantitative Assessment & Plan - Assessment and Plan (Free Text) Assessment: 51F with pmh of Depression, Crohn's Disease, LBP, and MVP presents to the ED with SI and overdose on 20 pills of klonopin. 1. SI w/ Overdose on Klonopin - EKG reviewed - NSR QTc 472 - poison control called in the ED (nurse prashant spoke to poison control who stated 3-4 hours repeat ecg, awaiting lab work, monitor and supportive care) - Psych consulted for recs - 1:1 observation for suicial ideation - f/u serial trops - (+) Utox with cocaine - F/u Hba1c, TSH, Lipids - F/u morning labs 2. Rhabdomyolysis - CPK of 3363 - Cont fluids NS @ 150 - Cont to monitor 3. Transaminitis - ETOH level 75 - F/u hepatitis panel - f/u abdominal US - Cont to trend 4. GI/DVT ppx - protonix and SCDs/ Ambulation Case and plan was reviewed and discussed with Dr Quevedo. <Hermelindo Quevedo - Last Filed: 10/05/17 05:23> Results - Vital Signs Recent Vital Signs: Last Vital Signs Temp 97.6 F 10/04/17 14:06 Pulse 76 10/05/17 02:15 Resp 18 10/05/17 02:15 BP 139/87 10/05/17 02:15 Pulse Ox 99 10/05/17 02:15 - Labs Result Diagrams: 10/05/17 04:00 10/05/17 04:00 Labs: Laboratory Results - last 24 hr 10/05/17 10/05/17 04:00 04:00 WBC 10.8 D RBC 4.13 Hgb 12.1 Hct 36.8 MCV 89.1 MCH 29.3 MCHC 32.9 RDW 13.7 Plt Count 405 MPV 8.8 Gran % 79.2 H Lymph % (Auto) 12.2 L [place] % (Auto) 5.4 Eos % (Auto) 2.8 Baso % (Auto) 0.4 Gran # 8.59 H Lymph # 1.3 [place] # 0.6 Eos # 0.3 Baso # 0.04 Sodium 141 Potassium 4.2 Chloride 108 H Carbon Dioxide 27 Anion Gap 11 BUN 10 Creatinine 0.7 Est GFR ( Amer) > 60 Est GFR (Non-Af Amer) > 60 Random Glucose 98 Calcium 9.5 Total Bilirubin 0.3 AST 61 H D ALT 66 H Alkaline Phosphatase 117 Troponin I < 0.01 Total Protein 6.8 Albumin 3.8 Globulin 3.0 Albumin/Globulin Ratio 1.3 Attending/Attestation - Attestation I have personally seen and examined this patient.: Yes I have fully participated in the care of the patient.: Yes I have reviewed all pertinent clinical information: Yes Notes (Text): 10/05/17 05:23 Patient was seen when she was in the ER in bed # 7. Agree with history , physical examination , assessment and plan.
[2017-10-04] MEDS: Sodium Chloride 0.9% 1,000 ML IV SCH (20:17)
--- NOTE | 2017-10-04 21:27 | US ---
EXAM: US Abdomen Complete CLINICAL HISTORY: 51 years old, female; Pain; Abdominal pain; Generalized; Additional info: Transaminitis TECHNIQUE: Real-time ultrasound of the abdomen (complete) with image documentation. COMPARISON: US - HEPATIC 2017-05-16 17:31 FINDINGS: Liver: Normal echogenicity. No mass. No intrahepatic bile duct dilatation. Gallbladder: No gallstones. No wall thickening. No pericholecystic fluid. No sonographic Rodriguez's sign. Common bile duct: No dilatation. No stones. Pancreas: Unremarkable as visualized. Kidneys: Normal echogenicity. No hydronephrosis. Spleen: No splenomegaly. Aorta: Unremarkable. No aneurysm. Inferior vena cava: Unremarkable. Free fluid: No significant free fluid. IMPRESSION: 1.No acute findings.
[2017-10-04 21:31] LABS: CHOLESTEROL 196 mg/dL (130-200)
[2017-10-04 21:44] LABS: TROPONIN I < 0.01 ng/mL
[2017-10-05 04:28] LABS: BASO # 0.04 K/mm3 (0.0-2.0); BASO % 0.4 % (0.0-3.0); EOS # 0.3 (0.0-0.7); EOS % 2.8 % (1.5-5.0); GRAN # 8.59 (1.4-6.5); GRAN % 79.2 % (50.0-68.0); HEMATOCRIT 36.8 % (36.0-48.0); LYMPH # 1.3 (1.2-3.4); LYMPH % 12.2 % (22.0-35.0); MEAN CELL VOLUME 89.1 fl (80.0-105.0); MEAN CORPUSCULAR HEMOGLOBIN 29.3 pg (25.0-35.0); MEAN CORPUSCULAR HGB CONC 32.9 g/dl (31.0-37.0); MEAN PLATELET VOLUME 8.8 fl (7.0-11.0); MONO # 0.6 (0.1-0.6); MONO % 5.4 % (1.0-6.0); RED CELL DISTRIBUTION WIDTH 13.7 % (11.5-14.5); WHITE BLOOD COUNT 10.8 10^3/ul (4.5-11.0)
[2017-10-05 04:39] LABS: TROPONIN I < 0.01 ng/mL
[2017-10-05 05:07] LABS: ALB/GLOB RATIO 1.3 (1.1-1.8); ALKALINE PHOSPHATASE 117 U/L (38-126); ALT/SGPT 66 U/L (7-56); AST/SGOT 61 U/L (14-36); BILIRUBIN,TOTAL 0.3 mg/dL (0.2-1.3); BLOOD UREA NITROGEN 10 mg/dL (7-21); CALCIUM 9.5 mg/dL (8.4-10.5); CARBON DIOXIDE 27 mmol/L (21-33); CHLORIDE 108 mmol/L (98-107); GFR AFRICAN-AMERICAN > 60; GLUCOSE,RANDOM 98 mg/dL (70-110); POTASSIUM 4.2 mmol/L (3.6-5.0); SODIUM 141 mmol/L (132-148); TOTAL PROTEIN 6.8 g/dL (5.8-8.3)
[2017-10-05] MEDS: Pantoprazole 40 mg EC Tab PO SCH (06:30)
--- NOTE | 2017-10-05 10:06 | CARD ---
APPROVED REPORT EKG Measurement Heart [id number] MI 148P58 [id number] <Conclusion> Normal sinus rhythm NSSTW changes and prolonged QTc, new
--- NOTE | 2017-10-05 10:19 | CARD ---
APPROVED REPORT EKG Measurement Heart [id number] HI 158P50 [id number] <Conclusion> Normal sinus rhythm NSSTW changes Prolonged QTc No change
--- NOTE | 2017-10-05 15:43 | CP.PCM.PN ---
<Codi Alvarado - Last Filed: 10/05/17 15:40> Subjective - Date & Time of Evaluation Date of Evaluation: 10/05/17 Time of Evaluation: 13:00 - Subjective Subjective: Patient has been seen and examined. No overnight events reported. Patient only complains of being tired. She denies any fever, chills, headache, dizziness, chest pain, palpitations, SOB, abdominal pain, n/v/d, constipation, or any urinary symptoms. Objective - Vital Signs/Intake and Output Vital Signs (last 24 hours): Temp Pulse Resp BP Pulse Ox 99.2 F 76 18 116/76 98 10/05/17 06:53 10/05/17 10:00 10/05/17 06:53 10/05/17 06:53 10/05/17 06:53 - Medications Medications: Current Medications Sodium Chloride (Sodium Chloride 0.9%) 1,000 mls @ 150 mls/hr IV .Q6H40M [facility] Last Admin: 10/04/17 20:17 Dose: 150 mls/hr Ibuprofen (Motrin Tab) 400 mg PO Q6H PRN PRN Reason: Headache Last Admin: 10/05/17 09:20 Dose: 400 mg Ondansetron HCl (Zofran Inj) 4 mg IVP Q6H PRN PRN Reason: Nausea/Vomiting Pantoprazole Sodium (Protonix Ec Tab) 40 mg PO 0600 [facility] Last Admin: 10/05/17 06:30 Dose: 40 mg - Labs Labs: 10/05/17 04:00 10/05/17 04:00 - Additional Findings Additional findings: - Constitutional Appears: No Acute Distress - Head Exam Head Exam: ATRAUMATIC, NORMOCEPHALIC - Eye Exam Eye Exam: EOMI, PERRL - ENT Exam ENT Exam: Mucous Membranes Moist - Neck Exam Neck exam: Positive for: Normal Inspection - Respiratory Exam Respiratory Exam: Clear to Auscultation Bilateral. absent: Wheezes - Cardiovascular Exam Cardiovascular Exam: REGULAR RHYTHM, RRR, +S1, +S2 - GI/Abdominal Exam GI & Abdominal Exam: Normal Bowel Sounds, Soft. absent: Tenderness - Extremities Exam Extremities exam: Negative for: calf tenderness, pedal edema - Neurological Exam Neurological exam: Alert, Oriented x3 - Psychiatric Exam Psychiatric exam: Normal Affect, Normal Mood - Skin Skin Exam: Dry, Intact, Warm Assessment and Plan - Assessment and Plan (Free Text) Assessment: 51F with pmh of Depression, Crohn's Disease, LBP, and MVP presents to the ED with SI and overdose on 20 pills of klonopin. Plan: 1. SI w/ Overdose on Klonopin - EKG reviewed - NSR QTc 472 - poison control called in the ED (nurse prashant spoke to poison control who stated 3-4 hours repeat ecg, awaiting lab work, monitor and supportive care) - Psych consulted for recs - 1:1 observation for suicial ideation - serial trops - NEGATIVE x 3 - (+) Utox with cocaine - Hba1c - WNL, TSH- WNL, Lipids - WNL except TG's which is 288. - Transfer to Psych - DC Telemetry 2. Rhabdomyolysis (Improving) - CPK of 3363 improved to 641 - Cont fluids NS @ 150 mls/hr. When patient is transferred to psych unit, encourage PO fluid intake. - Cont to monitor 3. Transaminitis (Improving) - ETOH level 75 on admission - Hepatitis Panel - NEGATIVE - Abdominal US shows no acute findings - Cont to trend 4. GI/DVT ppx - protonix and SCDs/ Ambulation Dispo: Patient is cleared medically. Will follow up with Psych about plan for her suicidal ideation. Patient seen and discussed with Dr. Sil Alvarado PGY-1 <Jj Mujica - Last Filed: 10/05/17 17:31> Objective - Vital Signs/Intake and Output Vital Signs (last 24 hours): Temp Pulse Resp BP Pulse Ox 99.2 F 76 18 116/76 98 10/05/17 06:53 10/05/17 10:00 10/05/17 06:53 10/05/17 06:53 10/05/17 06:53 Intake and Output: 10/05/17 10/05/17 06:59 18:59 Intake Total 200 Balance 200 - Medications Medications: Current Medications Sodium Chloride (Sodium Chloride 0.9%) 1,000 mls @ 150 mls/hr IV .Q6H40M [facility] Last Admin: 10/04/17 20:17 Dose: 150 mls/hr Ibuprofen (Motrin Tab) 400 mg PO Q6H PRN PRN Reason: Headache Last Admin: 10/05/17 09:20 Dose: 400 mg Ondansetron HCl (Zofran Inj) 4 mg IVP Q6H PRN PRN Reason: Nausea/Vomiting Pantoprazole Sodium (Protonix Ec Tab) 40 mg PO 0600 [facility] Last Admin: 10/05/17 06:30 Dose: 40 mg - Labs Labs: 10/05/17 04:00 10/05/17 04:00 Attending/Attestation - Attestation I have personally seen and examined this patient.: Yes I have fully participated in the care of the patient.: Yes I have reviewed all pertinent clinical information, including history, physical exam and plan: Yes Notes (Text): 10/05/17 17:24 51 year old female with past medical history of depression who presented with overdose of 20 pills of klonopin in attempted suicide. Poison control was called who requested serial EKGs as initially she had prolonged QTc which has improved. Can d/c telemetry. She was also found to have rhabdomyolysis with CPK >3000 which has improved with IVF to ~600. She has elevated LFTs, possibly secondary to ETOH abuse. Hepatitis panel is negative and US abdomen was unremarkable. Urine drug screen was positive for cocaine, although patient denied use of. She was counselled on risks of continued substance and alcohol abuse. This afternoon patient seen in the ER. She is still very depressed clinically. She is with 1:1 observation. Her QTc prolongation and rhabdomyolysis have improved as above. She is medically cleared to be transferred to inpatient psychiatric unit. If she refuses can consider [facility] screeners for involuntary commitment. Case was discussed with psychiatry, Dr. Shin. Jj Mujica MD Hospitalist.
[2017-10-05 20:09] VITALS: O2SAT 99
[2017-10-05] MEDS: Sodium Chloride 0.9% 1,000 ML IV SCH (21:31)
--- NOTE | 2017-10-06 00:43 | CON ---
DATE: HISTORY OF PRESENT ILLNESS: In short, the patient is a 51-year-old female with history of depression and anxiety. The patient was brought in status post suicidal attempt. The patient overdosed on 15-20 pills of Klonopin with alcohol. The patient has multiple suicidal attempts in the past. The patient also relapsed on cocaine, has a lot of family and financial issues. The patient was medically cleared. Psych consult was called for evaluation of possible psych admission. The patient was seen and examined by this rewriter and nurse practitioner, Momo. The patient presented to be depressed, tearful, flat affect. The patient said that she wanted to end up her life, but when offered admission to the psychiatric inpatient unit, the patient declined that offer. The patient said that a lot of things going on in her life. She was unhappy. The patient said that Josse time makes her feel very depressed. The patient denied hearing voices, denied seeing things, denied paranoid ideation. The patient is secretive withholding information and wants to be discharged as soon as possible. This rewriter does not feel that the patient is ready to go, but the patient refused to have voluntary admission. This rewriter had prolonged conversation with Dr. Mujica in regards of the medical problems that the patient has. The patient was medically cleared. EKG was done, which showed no QTC prolongation and rhabdomyolysis is better. Vital signs reviewed, seems to be stable. Medications reviewed. The patient said that she was filling medication at [facility]. The patient was on Wellbutrin extended-release 300 mg daily, Lexapro 20 mg daily, Klonopin 0.5 mg twice a day. The patient was seen by psychiatrist, , and all the prescriptions were given by her. Mental status examination by this rewriter described above. The patient is tearful, flat affect. No eye contact. Speech was under productive, yes/no answers. Thought process concrete. Thought content, the patient denied visual, auditory, and tactile hallucinations. Denied paranoid ideation. The patient denied thoughts of harming others, but made statement that she wanted to kill herself. Insight and judgment seems to be impaired. Impulses are unpredictable. IMPRESSION: Self-reported history of depression, anxiety, status post suicidal attempt. The patient overdosed on Klonopin. PLAN: This rewriter offered admission to the psychiatric inpatient unit. The patient declined that offer. All medications were confirmed by the patient's pharmacy. Please see above. The patient is on one-to-one right now. We will initiate [facility] screening process for involuntary commitment. The patient's family expressed highest concern about the patient's safety. We will follow up and advise accordingly. Thank you very much for letting me to participate in the care of your patient. Should you have any questions, give me a call back. Smiley Shin MD
[2017-10-06] MEDS: Pantoprazole 40 mg EC Tab PO SCH (05:50)
[2017-10-06 07:06] LABS: BASO # 0.05 K/mm3 (0.0-2.0); BASO % 0.7 % (0.0-3.0); EOS # 0.2 (0.0-0.7); EOS % 3.5 % (1.5-5.0); GRAN # 3.68 (1.4-6.5); GRAN % 53.9 % (50.0-68.0); HEMATOCRIT 38.7 % (36.0-48.0); LYMPH # 2.3 (1.2-3.4); LYMPH % 34.1 % (22.0-35.0); MEAN CELL VOLUME 89.6 fl (80.0-105.0); MEAN CORPUSCULAR HEMOGLOBIN 29.2 pg (25.0-35.0); MEAN CORPUSCULAR HGB CONC 32.6 g/dl (31.0-37.0); MEAN PLATELET VOLUME 9.1 fl (7.0-11.0); MONO # 0.5 (0.1-0.6); MONO % 7.8 % (1.0-6.0); RED CELL DISTRIBUTION WIDTH 13.5 % (11.5-14.5); WHITE BLOOD COUNT 6.8 10^3/ul (4.5-11.0)
[2017-10-06 07:43] LABS: ALB/GLOB RATIO 1.2 (1.1-1.8); ALKALINE PHOSPHATASE 112 U/L (38-126); ALT/SGPT 57 U/L (7-56); AST/SGOT 48 U/L (14-36); BILIRUBIN,TOTAL 0.3 mg/dL (0.2-1.3); BLOOD UREA NITROGEN 11 mg/dL (7-21); CALCIUM 9.6 mg/dL (8.4-10.5); CARBON DIOXIDE 24 mmol/L (21-33); CHLORIDE 112 mmol/L (98-107); GFR AFRICAN-AMERICAN > 60; GLUCOSE,RANDOM 100 mg/dL (70-110); POTASSIUM 4.1 mmol/L (3.6-5.0); SODIUM 144 mmol/L (132-148); TOTAL PROTEIN 7.3 g/dL (5.8-8.3)
--- NOTE | 2017-10-06 09:25 | CARD ---
APPROVED REPORT EKG Measurement Heart [id number] <Conclusion> Normal sinus rhythm Improved repolarization c/w ECG 10/04/17 Prolonged QT
--- NOTE | 2017-10-06 09:39 | CARD ---
APPROVED REPORT EKG Measurement Heart [id number] ID [id number] <Conclusion> Normal sinus rhythm Mildly prolonged QTc. No change
--- NOTE | 2017-10-06 09:42 | CP.PCM.PN ---
Subjective - Date & Time of Evaluation Date of Evaluation: 10/06/17 Time of Evaluation: 09:39 - Subjective Subjective: Patient has been seen and examined. NO overnight events reported. Patient denies any fever, chest pain, Palpitations, SOB, n/v/d, constipation, or urinary symptoms. Patient does complain of cough which has been going on for a week before admission. Patient also complains of mild diffuse abdominal pain which she states is chronic due to her Crohns disease. Patient states she has been on several medications for her crohns and they haven't been too helpful. She states was supposed to get switched to [place] the day of admission. Patient reports a better mood and denies any suicidal ideation. Patient stated she wants to go home. Objective - Vital Signs/Intake and Output Vital Signs (last 24 hours): Temp Pulse Resp BP Pulse Ox 99.2 F 76 20 110/67 99 10/05/17 06:53 10/05/17 20:08 10/06/17 05:17 10/05/17 20:08 10/05/17 20:08 - Medications Medications: Current Medications Sodium Chloride (Sodium Chloride 0.9%) 1,000 mls @ 150 mls/hr IV .Q6H40M [facility] Last Admin: 10/05/17 21:31 Dose: 150 mls/hr Ibuprofen (Motrin Tab) 400 mg PO Q6H PRN PRN Reason: Headache Last Admin: 10/06/17 08:32 Dose: 400 mg Ondansetron HCl (Zofran Inj) 4 mg IVP Q6H PRN PRN Reason: Nausea/Vomiting Pantoprazole Sodium (Protonix Ec Tab) 40 mg PO 0600 [facility] Last Admin: 10/06/17 05:50 Dose: 40 mg - Labs Labs: 10/06/17 06:20 10/06/17 06:20 - Additional Findings Additional findings: - Constitutional Appears: No Acute Distress - Head Exam Head Exam: ATRAUMATIC, NORMOCEPHALIC - Eye Exam Eye Exam: EOMI, PERRL - ENT Exam ENT Exam: Mucous Membranes Moist - Neck Exam Neck exam: Positive for: Normal Inspection - Respiratory Exam Respiratory Exam: Clear to Auscultation Bilateral. absent: Wheezes - Cardiovascular Exam Cardiovascular Exam: REGULAR RHYTHM, RRR, +S1, +S2 - GI/Abdominal Exam GI & Abdominal Exam: Normal Bowel Sounds, Soft, Diffuse tenderness. - Extremities Exam Extremities exam: Negative for: calf tenderness, pedal edema - Neurological Exam Neurological exam: Alert, Oriented x3 - Psychiatric Exam Psychiatric exam: Normal Affect, Normal Mood - Skin Skin Exam: Dry, Intact, Warm Assessment and Plan - Assessment and Plan (Free Text) Assessment: 51F with pmh of Depression, Crohn's Disease, LBP, and MVP presents to the ED with SI and overdose on 20 pills of klonopin. Plan: 1. SI w/ Overdose on Klonopin - EKG on 10/05 showed QT of 430 and Qtc of 483. Read as prolonged QT - poison control called in the ED - Per Psych - Patient is refusing voluntary inpatient admission. [facility] [place]. - 1:1 observation for suicial ideation - serial trops - NEGATIVE x 3 - (+) Utox with cocaine - Hba1c - WNL, TSH- WNL, Lipids - WNL except TG's which is 288. - F/U with [facility] [place]. - DC Telemetry 2. Rhabdomyolysis (Improving) - CPK of 3363 improved to 641 to 514 - Cont fluids NS @ 150 mls/hr. - Cont to monitor 3. Transaminitis (Improving) - ETOH level 75 on admission - Hepatitis Panel - NEGATIVE - Abdominal US shows no acute findings - Downtrending. Cont. to monitor 4. GI/DVT ppx - protonix and SCDs/ Ambulation Dispo: Patient is cleared medically. [facility] [place] been initiated for involuntary Psych admission.
[2017-10-06] MEDS: Sodium Chloride 0.9% 1,000 ML IV SCH (10:35)
[2017-10-06 10:41] VITALS: BP 136/92; PULSE 63; RESP 18; TEMP 97.5
[2017-10-06] MEDS ORDERED: HUMIRA SC SCH ×3 (13:00→13:12)
--- NOTE | 2017-10-06 13:49 | CP.PCM.DIS ---
<Codi Alvarado - Last Filed: 10/06/17 13:31> Provider - Provider Date of Admission: 10/05/17 20:15 Attending physician: Jj Mujica MD Primary care physician: Benjamin Ceballos MD Consults: GI: Dr. Hugo Psych: Dr. Smiley Shin Time Spent in preparation of Discharge (in minutes): 45 Diagnosis - Discharge Diagnosis (1) Overdose Status: Acute Comment: Patient DC'd to Psych Unit (2) Rhabdomyolysis Status: Acute Comment: Resolving (3) Suicide attempt Status: Acute Comment: Patient DC'd to Psych Unit Hospital Course - Lab Results Lab Results: Most Recent Lab Values WBC 6.8 10^3/ul (4.5-11.0) D 10/06/17 06:20 RBC 4.32 10^6/uL (3.5-6.1) 10/06/17 06:20 Hgb 12.6 g/dL (12.0-16.0) 10/06/17 06:20 Hct 38.7 % (36.0-48.0) 10/06/17 06:20 MCV 89.6 fl (80.0-105.0) 10/06/17 06:20 MCH 29.2 pg (25.0-35.0) 10/06/17 06:20 MCHC 32.6 g/dl (31.0-37.0) 10/06/17 06:20 RDW 13.5 % (11.5-14.5) 10/06/17 06:20 Plt Count 434 10^3/uL (120.0-450.0) 10/06/17 06:20 MPV 9.1 fl (7.0-11.0) 10/06/17 06:20 Gran % 53.9 % (50.0-68.0) 10/06/17 06:20 Lymph % (Auto) 34.1 % (22.0-35.0) 10/06/17 06:20 [place] % (Auto) 7.8 % (1.0-6.0) H 10/06/17 06:20 Eos % (Auto) 3.5 % (1.5-5.0) 10/06/17 06:20 Baso % (Auto) 0.7 % (0.0-3.0) 10/06/17 06:20 Gran # 3.68 (1.4-6.5) 10/06/17 06:20 Lymph # 2.3 (1.2-3.4) 10/06/17 06:20 [place] # 0.5 (0.1-0.6) 10/06/17 06:20 Eos # 0.2 (0.0-0.7) 10/06/17 06:20 Baso # 0.05 K/mm3 (0.0-2.0) 10/06/17 06:20 Sodium 144 mmol/L (132-148) 10/06/17 06:20 Potassium 4.1 mmol/L (3.6-5.0) 10/06/17 06:20 Chloride 112 mmol/L (98-107) H 10/06/17 06:20 Carbon Dioxide 24 mmol/L (21-33) 10/06/17 06:20 Anion Gap 12 (10-20) 10/06/17 06:20 BUN 11 mg/dL (7-21) 10/06/17 06:20 Creatinine 0.7 mg/dl (0.7-1.2) 10/06/17 06:20 Est GFR ( Amer) > 60 10/06/17 06:20 Est GFR (Non-Af Amer) > 60 10/06/17 06:20 Random Glucose 100 mg/dL (70-110) 10/06/17 06:20 Hemoglobin A1c 5.8 % (4.2-6.5) 10/04/17 21:12 Calcium 9.6 mg/dL (8.4-10.5) 10/06/17 06:20 Total Bilirubin 0.3 mg/dL (0.2-1.3) 10/06/17 06:20 AST 48 U/L (14-36) H D 10/06/17 06:20 ALT 57 U/L (7-56) H 10/06/17 06:20 Alkaline Phosphatase 112 U/L (38-126) 10/06/17 06:20 Total Creatine Kinase 514 U/L (35-230) H 10/06/17 06:40 CK-MB (CK-2) 2.3 ng/mL (0.0-3.6) 10/06/17 06:40 CK-MB (CK-2) % 0.8 % (2.5-3.0) L 10/05/17 07:08 Troponin I < 0.01 ng/mL 10/05/17 04:00 Total Protein 7.3 g/dL (5.8-8.3) 10/06/17 06:20 Albumin 4.0 g/dL (3.0-4.8) 10/06/17 06:20 Globulin 3.3 gm/dL 10/06/17 06:20 Albumin/Globulin Ratio 1.2 (1.1-1.8) 10/06/17 06:20 Triglycerides 288 mg/dL (35-160) H 10/04/17 21:12 Cholesterol 196 mg/dL (130-200) 10/04/17 21:12 LDL Cholesterol Direct 71 mg/dL (0-129) 10/04/17 21:12 HDL Cholesterol 58 mg/dL (29-60) 10/04/17 21:12 TSH 3rd Generation 1.31 mIU/mL (0.46-4.68) 10/04/17 21:12 Urine Color Yellow (YELLOW) 10/04/17 17:09 Urine Appearance Clear (CLEAR) 10/04/17 17:09 Urine pH 6.0 (4.7-8.0) 10/04/17 17:09 Ur Specific [place] 1.010 (1.005-1.035) 10/04/17 17:09 Urine Protein Negative mg/dL (<30 mg/dL) 10/04/17 17:09 Urine Glucose (UA) Negative mg/dL (NEGATIVE) 10/04/17 17:09 Urine Ketones Negative mg/dL (NEGATIVE) 10/04/17 17:09 Urine Blood Negative (NEGATIVE) 10/04/17 17:09 Urine Nitrate Negative (NEGATIVE) 10/04/17 17:09 Urine Bilirubin Negative (NEGATIVE) 10/04/17 17:09 Urine Urobilinogen 0.2 E.U./dL (<1 E.U./dL) 10/04/17 17:09 Ur Leukocyte Esterase Negative Bart/uL (NEGATIVE) 10/04/17 17:09 Urine HCG, Qual Negative (NEGATIVE) 10/04/17 17:09 Salicylates < 1 mg/dL (2.0-20.0) L 10/04/17 14:30 Urine Opiates Screen Negative (NEGATIVE) 10/04/17 17:09 Urine Methadone Screen Negative (NEGATIVE) 10/04/17 17:09 Acetaminophen < 10.0 ug/ml (10.0-20.0) L 10/04/17 14:30 Ur Barbiturates Screen Negative (NEGATIVE) 10/04/17 17:09 Ur Phencyclidine Scrn Negative (NEGATIVE) 10/04/17 17:09 Ur Amphetamines Screen Negative (NEGATIVE) 10/04/17 17:09 U Benzodiazepines Scrn Negative (NEGATIVE) 10/04/17 17:09 U Oth Cocaine Metabols Positive (NEGATIVE) H 10/04/17 17:09 U Cannabinoids Screen Negative (NEGATIVE) 10/04/17 17:09 Alcohol, Quantitative 75 mg/dL (0-10) H 10/04/17 14:30 Hepatitis A IgM Ab Negative (NEGATIVE) 10/04/17 21:12 Hep Bs Antigen Negative (NEGATIVE) 10/04/17 21:12 Hep B Core IgM Ab Negative (NEGATIVE) 10/04/17 21:12 Hepatitis C Antibody Negative (NEGATIVE) 10/04/17 21:12 - Hospital Course Hospital Course: Patient is a 51 year old female with a PMHx of Depression, Crohn's Disease, LBP , and mitral valve prolapse who was admitted for evaluation for suicide attempt by overdose. Patient attempted suicide by overdosing on Klonopin. Psych was consulted on the case. Patient on admission was NSR with a prolonged QT. Her prolonged QT has resolved per the latest EKG. Hospital course was complicated by rhabdomyolysis. Total CK on admission was 3363 and has been downtrending. Most recent Total CK was 514. Troponins were NEGATIVE x 3. TSH was WNL at 1.31. Liver enzymes were mildly elevated and have been downtrending. UDS was positive for Cocaine. EtOH level was 75 on admission. Hepatitis Panel was negative and abdominal US showed no acute findings. HgBA1c and Lipid panel were WNL except TG's were elevated at 288. Patient's Rhabdomyolysis was treated with IV fluids, and she was given Zofran for Nausea. Patient originally was resistant to going to Psych unit so [facility] screening process was initiated. Today, patient agreed to voluntary psych admission and will be transferred to unit 5B (Psych) at [facility]. She was put on 1:1 for suicidal ideation. Today patient had 6-7 looose bowel movements with abdominal pain. Stool C.Diff, fecal Leukocytes, and stool cultures were ordered. The patient refused abdominal CT. Patient's GI doctor (Dr. Hugo) was contacted and consulted. Per GI, patient is okay to go to Psych unit and to start her home Humira for her Crohn's Disease. Patient is agreeable to plan and medications. Codi seen and discussed with Attending Codi Alvarado PGY-1 - Date & Time of H&P Date of H&P: 10/06/17 Time of H&P: 11:45 Discharge Exam - Head Exam Head Exam: ATRAUMATIC, NORMOCEPHALIC - Additional Findings Additional findings: - Constitutional Appears: No Acute Distress - Head Exam Head Exam: ATRAUMATIC, NORMOCEPHALIC - Eye Exam Eye Exam: EOMI, PERRL - ENT Exam ENT Exam: Mucous Membranes Moist - Neck Exam Neck exam: Positive for: Normal Inspection - Respiratory Exam Respiratory Exam: Clear to Auscultation Bilateral. absent: Wheezes - Cardiovascular Exam Cardiovascular Exam: REGULAR RHYTHM, RRR, +S1, +S2 - GI/Abdominal Exam GI & Abdominal Exam: Normal Bowel Sounds, Soft. absent: Tenderness - Extremities Exam Extremities exam: Negative for: calf tenderness, pedal edema - Neurological Exam Neurological exam: Alert, Oriented x3 - Psychiatric Exam Psychiatric exam: Normal Affect, Normal Mood - Skin Skin Exam: Dry, Intact, Warm Discharge Plan - Follow Up Plan Condition: IMPROVED Disposition: DISCHARGE TO PSYCH HOSPITAL Instructions: Rhabdomyolysis (DC), Depression (DC), Regular Diet (DC), Suicide Prevention for Adults (DC), Anxiety (DC) Referrals: Benjamin Ceballos MD [Primary Care Provider] - Gibran Espinoza MD [Staff Provider] - Jaret Hugo DO [Staff Provider] - <Jj Mujica - Last Filed: 10/06/17 16:00> Provider - Provider Date of Admission: 10/05/17 20:15 Attending physician: Jj Mujica MD Primary care physician: Benjamin Ceballos MD Hospital Course - Lab Results Lab Results: Micro Results 10/06/17 13:00 Stool C. difficile Antigen & Toxin A,B (M - Final Most Recent Lab Values WBC 6.8 10^3/ul (4.5-11.0) D 10/06/17 06:20 RBC 4.32 10^6/uL (3.5-6.1) 10/06/17 06:20 Hgb 12.6 g/dL (12.0-16.0) 10/06/17 06:20 Hct 38.7 % (36.0-48.0) 10/06/17 06:20 MCV 89.6 fl (80.0-105.0) 10/06/17 06:20 MCH 29.2 pg (25.0-35.0) 10/06/17 06:20 MCHC 32.6 g/dl (31.0-37.0) 10/06/17 06:20 RDW 13.5 % (11.5-14.5) 10/06/17 06:20 Plt Count 434 10^3/uL (120.0-450.0) 10/06/17 06:20 MPV 9.1 fl (7.0-11.0) 10/06/17 06:20 Gran % 53.9 % (50.0-68.0) 10/06/17 06:20 Lymph % (Auto) 34.1 % (22.0-35.0) 10/06/17 06:20 [place] % (Auto) 7.8 % (1.0-6.0) H 10/06/17 06:20 Eos % (Auto) 3.5 % (1.5-5.0) 10/06/17 06:20 Baso % (Auto) 0.7 % (0.0-3.0) 10/06/17 06:20 Gran # 3.68 (1.4-6.5) 10/06/17 06:20 Lymph # 2.3 (1.2-3.4) 10/06/17 06:20 [place] # 0.5 (0.1-0.6) 10/06/17 06:20 Eos # 0.2 (0.0-0.7) 10/06/17 06:20 Baso # 0.05 K/mm3 (0.0-2.0) 10/06/17 06:20 ESR 57 mm/hr (0.0-20.0) H 10/06/17 07:30 Sodium 144 mmol/L (132-148) 10/06/17 06:20 Potassium 4.1 mmol/L (3.6-5.0) 10/06/17 06:20 Chloride 112 mmol/L (98-107) H 10/06/17 06:20 Carbon Dioxide 24 mmol/L (21-33) 10/06/17 06:20 Anion Gap 12 (10-20) 10/06/17 06:20 BUN 11 mg/dL (7-21) 10/06/17 06:20 Creatinine 0.7 mg/dl (0.7-1.2) 10/06/17 06:20 Est GFR ( Amer) > 60 10/06/17 06:20 Est GFR (Non-Af Amer) > 60 10/06/17 06:20 Random Glucose 100 mg/dL (70-110) 10/06/17 06:20 Hemoglobin A1c 5.8 % (4.2-6.5) 10/04/17 21:12 Calcium 9.6 mg/dL (8.4-10.5) 10/06/17 06:20 Total Bilirubin 0.3 mg/dL (0.2-1.3) 10/06/17 06:20 AST 48 U/L (14-36) H D 10/06/17 06:20 ALT 57 U/L (7-56) H 10/06/17 06:20 Alkaline Phosphatase 112 U/L (38-126) 10/06/17 06:20 Total Creatine Kinase 514 U/L (35-230) H 10/06/17 06:40 CK-MB (CK-2) 2.3 ng/mL (0.0-3.6) 10/06/17 06:40 CK-MB (CK-2) % 0.8 % (2.5-3.0) L 10/05/17 07:08 Troponin I < 0.01 ng/mL 10/05/17 04:00 Total Protein 7.3 g/dL (5.8-8.3) 10/06/17 06:20 Albumin 4.0 g/dL (3.0-4.8) 10/06/17 06:20 Globulin 3.3 gm/dL 10/06/17 06:20 Albumin/Globulin Ratio 1.2 (1.1-1.8) 10/06/17 06:20 Triglycerides 288 mg/dL (35-160) H 10/04/17 21:12 Cholesterol 196 mg/dL (130-200) 10/04/17 21:12 LDL Cholesterol Direct 71 mg/dL (0-129) 10/04/17 21:12 HDL Cholesterol 58 mg/dL (29-60) 10/04/17 21:12 TSH 3rd Generation 1.31 mIU/mL (0.46-4.68) 10/04/17 21:12 Urine Color Yellow (YELLOW) 10/04/17 17:09 Urine Appearance Clear (CLEAR) 10/04/17 17:09 Urine pH 6.0 (4.7-8.0) 10/04/17 17:09 Ur Specific [place] 1.010 (1.005-1.035) 10/04/17 17:09 Urine Protein Negative mg/dL (<30 mg/dL) 10/04/17 17:09 Urine Glucose (UA) Negative mg/dL (NEGATIVE) 10/04/17 17:09 Urine Ketones Negative mg/dL (NEGATIVE) 10/04/17 17:09 Urine Blood Negative (NEGATIVE) 10/04/17 17:09 Urine Nitrate Negative (NEGATIVE) 10/04/17 17:09 Urine Bilirubin Negative (NEGATIVE) 10/04/17 17:09 Urine Urobilinogen 0.2 E.U./dL (<1 E.U./dL) 10/04/17 17:09 Ur Leukocyte Esterase Negative Bart/uL (NEGATIVE) 10/04/17 17:09 Urine HCG, Qual Negative (NEGATIVE) 10/04/17 17:09 Salicylates < 1 mg/dL (2.0-20.0) L 10/04/17 14:30 Urine Opiates Screen Negative (NEGATIVE) 10/04/17 17:09 Urine Methadone Screen Negative (NEGATIVE) 10/04/17 17:09 Acetaminophen < 10.0 ug/ml (10.0-20.0) L 10/04/17 14:30 Ur Barbiturates Screen Negative (NEGATIVE) 10/04/17 17:09 Ur Phencyclidine Scrn Negative (NEGATIVE) 10/04/17 17:09 Ur Amphetamines Screen Negative (NEGATIVE) 10/04/17 17:09 U Benzodiazepines Scrn Negative (NEGATIVE) 10/04/17 17:09 U Oth Cocaine Metabols Positive (NEGATIVE) H 10/04/17 17:09 U Cannabinoids Screen Negative (NEGATIVE) 10/04/17 17:09 Alcohol, Quantitative 75 mg/dL (0-10) H 10/04/17 14:30 Hepatitis A IgM Ab Negative (NEGATIVE) 10/04/17 21:12 Hep Bs Antigen Negative (NEGATIVE) 10/04/17 21:12 Hep B Core IgM Ab Negative (NEGATIVE) 10/04/17 21:12 Hepatitis C Antibody Negative (NEGATIVE) 10/04/17 21:12 Attending/Attestation - Attestation I have personally seen and examined this patient.: Yes I have fully participated in the care of the patient.: Yes I have reviewed all pertinent clinical information, including history, physical exam and plan: Yes Notes (Text): 10/06/17 15:58 51 year old female with past medical history of depression who presented with overdose of 20 pills of klonopin in attempted suicide. Poison control was called who requested serial EKGs as initially she had prolonged QTc which has improved. She was also found to have rhabdomyolysis with CPK >3000 which has improved with IVF. She has elevated LFTs, possibly secondary to ETOH abuse. Hepatitis panel is negative and US abdomen was unremarkable. Urine drug screen was positive for cocaine, although patient denied use of. She was counselled on risks of continued substance and alcohol abuse. Today she complained of loose stools and mild abdominal discomfort. CDif study is negative. She refused any further workup including imaging. She is agreeable to be transferred to inpatient psychiatry unit. Jj Mujica MD Hospitalist.
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
== END 2017-10-06 15:14 | DRG 582 ==
LOC: ED 13:34 → UNDOADMOB 20:15 → ERH 20:15 → UNDOADMOB 20:16 → ERH 20:16 → UNDOADMOB 21:15 → ERH 21:15 → UNDOADMOB 21:16 → INTOOBSV 10-05 20:15 → OBSVTOIN 10-05 20:15 → ERH 10-05 21:24 → 5RNO 10-05 22:12 → ERH 10-05 22:12 → UNDODISIN 10-06 15:14
PROVIDERS: ADMIT Internal Medicine; ATTEND Internal Medicine
DX: T42.4X2A Poisoning by benzodiazepines, intentional self-harm, initial encounter (principal); M62.82 Rhabdomyolysis; I45.81 Long QT syndrome; K50.90 Crohn's disease, unspecified, without complications; F32.9 Major depressive disorder, single episode, unspecified; I34.1 Nonrheumatic mitral (valve) prolapse; F17.210 Nicotine dependence, cigarettes, uncomplicated; F41.9 Anxiety disorder, unspecified; F10.10 Alcohol abuse, uncomplicated; Y90.3 Blood alcohol level of 60-79 mg/100 ml

== ENCOUNTER 2017-10-04 21:15 | Inpatient (IN) | payer OTHER ==
[2017-10-04 13:35] VITALS: BMI 28.7
--- NOTE | 2017-10-06 20:47 | PCM.BM ---
<Josse Lauren - Last Filed: 10/06/17 20:44> Treatment Plan Problems - Problems identified on initial assessmt Ineffective Coping Date Initiated: 10/06/17 Time Initiated: 20:46 Assessment reference: NA Status: Active Priority: 1 Helplessness/Hopelessness Date Initiated: 10/06/17 Time Initiated: 20:46 Assessment reference: NA Status: Active Priority: 2 Feelings of Worthlessness Date Initiated: 10/06/17 Time Initiated: 20:46 Assessment reference: NA Status: Active Priority: 3 Treatment assets and liabiliti Patient Assests: cooperative, educated, ADL independent, negotiates basic needs , good interpersonal skills Patient Liabilities: live alone, financial problems, substance abuse, medical problems - Milieu Protocol Maintain good personal hygiene: daily Encourage regular showers, every shift Remind patient to perform daily oral care, every shift Assist patient to perform ADL's Maintain personal safety: every shift Educate patient to report safety concerns to staff, every shift Monitor environment for contraband/sharps Medication safety: Monitor for expected outcome, potential side effects: every shift, Assess barriers to learning: every shift, Assess readiness for medication education: every shift Family Contact Family involvement: Famliy/SO not involved Family contact: Patient declines to allow family contact at present - Goals for Treatment Patient goals for treatment: Better coping skills Patient's family/SO goals for treatment: N/A Discharge/Continuing Care - Education Needs Education Needs: Patient Medication, Patient Diagnosis/Disease Process, Patient Coping Skills, Patient Anger Management skills, Patient Placement options, Patient Community resources, Patient Activities of Daily Living, Patient Pain, Patient Nutrition, Patient Uses of Medical Equipment, Patient Health Practices/ Safety, Patient Personal Hygiene/Grooming, Patient Aftercare Safety Plan - Discharge Discharge Criteria: Tolerates medication w/o severe side effects, Free of Suicidal thoughts <Smiley Shin - Last Filed: 10/07/17 10:12> - Diagnosis (1) MDD (major depressive disorder) Status: Acute Interventions: 10/07/17 10:12 Psychoeducation Psychopharmacology/adjustment of medications as needed/ monitoring possible side effects Evaluate pt on daily basis Compliance with medications and follow up appointments Suicide and homicide risk assessment and prevention Relapse prevention Reduction of symptoms Improve functional status Family involvement As outpatient: cognitive behavioral therapy (2) Cocaine abuse Status: Acute Interventions: 10/07/17 10:12 Pharmacotherapy for alcohol/benzos/opioid dependence Maintaining sobriety Relapse prevention Possible rehabilitation Motivational interviewing 12-step programs: AA meetings (3) Alcohol abuse Status: Acute Interventions: 10/07/17 10:12 Pharmacotherapy for alcohol/benzos/opioid dependence Maintaining sobriety Relapse prevention Possible rehabilitation Motivational interviewing 12-step programs: AA meetings
[2017-10-06 21:05] VITALS: RESP 20
[2017-10-07] MEDS ORDERED: Home Med 1 UNIT SC ONE ×2 (07:31→07:45)
[2017-10-07] MEDS: buPROPion 300 mg/24 Hours XL Tab PO SCH (08:38)
[2017-10-07] MEDS: oxyCODONE 10 mg Immediate Release Tab PO PRN ×2 (12:29→19:43)
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
--- NOTE | 2017-10-07 22:37 | CON ---
DATE: 10/07/2017 HISTORY OF PRESENT ILLNESS: I saw Ms. Goodwin this morning. She is a 51-year-old white female, known to information technology consultant, with past medical history of anxiety disorder and Crohn's enterocolitis. The patient was admitted after a suicide attempt with severe depression. Notably, the patient has had considerable difficulty obtaining medications to treat her Crohn's disease. Because she lost her insurance, the patient has not been able to obtain an anti-TNF agent, which will be used for ameliorating her symptoms. On the outpatient's side, she has been using prednisone as well as Pentasa; however, controlled symptoms with poor results. The patient has had unrelenting history of abdominal pain with nausea and vomiting for several months prior to admission. This physician was successful in obtaining her medications through a compassionate program, so the patient is able to start Humira which produced a very good therapeutic response previously. Today, at the bedside, the patient is complaining about severe abdominal pain, abdominal distention, nausea and as noted previously, she is extremely depressed because of her symptoms. She denies hematemesis or rectal bleeding. PHYSICAL EXAMINATION: VITAL SIGNS: I reviewed this patient's vital signs. HEENT: Noncontributory. LUNGS: Clear to auscultation. HEART: Regular rhythm. ABDOMEN: Distended, tender diffuse, irregular bowel sounds. LABORATORY DATA: No laboratory data for current admission. Notably before starting the anti-TNF inhibitor, the patient should be checked for TB. 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 ASSESSMENT: This is a 51-year-old white female with history of Crohn's enterocolitis, currently severely flaring due to lack of medications, and on my request, the patient's daughter brought her Humira starter kit in yesterday evening. This morning, the patient was successful in having the first 4 injections of Humira, the first induction dose. The second Humira induction dose regimen will be administered on outpatient side two weeks later. The patient was advised of the risks, benefits and alternatives of the injection, which consist of infection, sepsis, low risk for cancer, operational lab test, local skin infections etc. The patient is well aware of the risks, benefits and alternatives since she had been taking this medication successfully before. She signed a consent for the procedure on the psych floor. This consent will be in the patient's chart in my office. Note that today she received four Humira 40 mg pen contents after instruction by this physician. Medications were administered safely without incident. The patient tolerated the injections well. Due to the fact that the patient usually overall experienced some remission of symptoms after the second induction dose, we used low-dose prednisone and low-dose analgesic for at least temporary measure for pain and symptom control. Today, I will order prednisone 15 mg on a daily basis as well as low dose oxycodone in the form of 10 mg oxycodone every 6 hours for severe pain p.r.n. Note that the patient is on medications that include Ativan, Geodon, Klonopin, Lexapro, Sonata as well as Wellbutrin. The Psychiatry Service will treat the patient for depression and will be released at their discretion. As far as the diet is concerned, the patient should be able to tolerate diet at her discretion. I suggest that the patient if she is discharged somewhere in the range of 2 or possibly 3 days from now, she should follow up in the office this coming Monday, which will be 10/11/2017. Jaret Hugo DO, PhD MTDCrystal
[2017-10-08 07:05] VITALS: BP 119/73; PULSE 70; TEMP 97.8
[2017-10-08] MEDS: buPROPion 300 mg/24 Hours XL Tab PO SCH (08:43)
[2017-10-08] MEDS: oxyCODONE 10 mg Immediate Release Tab PO PRN (08:44)
--- NOTE | 2017-10-08 13:58 | PN ---
DATE: 10/08/2017 SUBJECTIVE: Ms. Goodwin was evaluated in the Psychiatry Unit this morning. The patient is a 51-year-old white female known to consultants with past medical history of Crohn enterocolitis. Note that she was admitted at this time to the hospital for attempted suicide attempt with Klonopin. The patient successfully obtained the first Humira induction dose yesterday assisted by this physician in the Psychiatric Unit at bedside. For symptom control, for unrelenting abdominal pain, nausea, vomiting, due to Crohn enterocolitis, the patient was started on low-dose oxycodone in the form of 10 mg every 6 hours p.r.n. and low-dose prednisone taper starting at 15 mg daily. The patient feels somewhat better today. Pain control is adequate with oxycodone at times. As called by the Psychiatric staff indicating that the patient will be discharged today. PHYSICAL EXAMINATION: VITAL SIGNS: Reviewed. Discussion with the patient overall abdominal pain, decreased abdominal distension down somewhat, nausea was as well. All this accomplished with the current medications. LABORATORY DATA: Note no laboratories or x-rays done for this patient. OVERALL ASSESSMENT: This is a 51-year-old white female known to consultants with past medical history of Crohn enterocolitis. Again, the patient started on Humira in the form of 40 mg Pens that is in the dose of 4 Pens contents injected yesterday in a Psychiatry Unit. Next induction dose will be in 2 weeks on an outpatient side. For symptom control since the overall effect of Humira is not noted until after about [id number]-bmsb to three weeks, the patient will be on a prednisone taper starting 15 mg daily. I gave her 3 scripts today before discharge that is oxycodone 10 mg #60 one to be taken every 6-8 hours for severe abdominal pain. The patient was also given a script for prednisone #150 as well as Zofran tablets 4 mg #15. Copies will be in the patient's chart. The patient was advised to follow up with me in the office Monday roughly at 4:00 p.m. Any questions, she can call me as an outpatient. Jaret Hugo DO, PhD PAT
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
== END 2017-10-08 13:08 | disposition left against medical advice (07) | DRG 430 ==
LOC: PSYC 21:15 → UNDOADMIN 21:15 → PSYC 10-06 15:10
PROVIDERS: ADMIT Psychiatry & Neurology Addiction Medicine; ATTEND Psychiatry & Neurology Addiction Medicine
PROC: GZ3ZZZZ Medication Management (ICD-10-PCS; principal; 2017-10-07)
DX: F33.2 Major depressive disorder, recurrent severe without psychotic features (principal); M62.82 Rhabdomyolysis; K50.90 Crohn's disease, unspecified, without complications; F14.10 Cocaine abuse, uncomplicated; F10.10 Alcohol abuse, uncomplicated; F17.210 Nicotine dependence, cigarettes, uncomplicated; Z91.5 Personal history of self-harm

== ENCOUNTER 2018-07-09 17:01 | Observation (INO) | payer OTHER ==
[2018-07-09] MEDS ORDERED: Albuterol-Ipratrop 3 mg / 0.5 (3 ml) UD IH STA (20:35)
[2018-07-09] MEDS ORDERED: Sodium Chloride 0.9% 1,000 ML IV STA (20:35)
[2018-07-09] MEDS ORDERED: Vancomycin 1gm in NS 250ml 1 GM/250 ML BAG IVPB STA (20:35)
--- NOTE | 2018-07-09 20:45 | ED PDOC ---
Arrival/HPI - General Chief Complaint: Finger,Hand,&Wrist Time Seen by Provider: 07/09/18 20:34 - History of Present Illness Narrative History of Present Illness (Text): 52 y/o F c PMHx emphysema p/w L hand infection x 1 week. Patient states bit on hand 1 week ago, since then, erythema, swelling, pain, and discharge of pus. Went to [facility] office today and instructed to come to ED for further evaluation. Patient denies fever, chest pain, vomiting. States she did start feeling short of breath while in ED, which she states is typical of her emphysema. Past Medical History - Infectious Disease Hx of Infectious Diseases: None - Cardiac Hx Cardiac Disorders: No Hx Hypertension: No - Pulmonary Hx Respiratory Disorders: Yes Hx Asthma: Yes Hx Emphysema: Yes - Neurological HX Cerebrovascular Accident: No Hx Seizures: No - HEENT Hx HEENT Disorder: No - Renal Hx Renal Disorder: No Hx Pyelonephritis: Yes - Endocrine/Metabolic Hx Endocrine Disorders: No - Hematological/Oncological Hx Cancer: No - Integumentary Hx Dermatological Disorder: No - Musculoskeletal/Rheumatological Hx Musculoskeletal Disorders: No Hx Falls: No - Gastrointestinal Hx Crohn's Disease: Yes (dx 2006) - Genitourinary/Gynecological Hx Sexually Transmitted Diseases: No - Psychiatric Hx Anxiety: Yes Hx Depression: Yes Hx Panic Disorder: Yes Hx Substance Use: Yes (cocaine abuse clean 10 years) - Surgical History Hx Orthopedic Surgery: Yes Other/Comment: rt breast lumpectomy benign, ovarian surgery, r salpingoophorectomy, ob gyn lap x3, 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, bakers tube - Anesthesia Hx Anesthesia: Yes Hx Anesthesia Reactions: No - Suicidal Assessment Feels Threatened In Home Enviroment: No Family/Social History Family/Social History: No Known Family HX Smoking Status: Former Smoker Hx Alcohol Use: Yes (occassional alcohol) Frequency of alcohol use: Socially Hx Substance Use: Yes (cocaine abuse clean 10 years) Allergies/Home Meds Allergies/Adverse Reactions: Allergies codeine Allergy (Verified 07/09/18 20:00) NAUSEA Review of Systems - Physician Review All systems were reviewed & negative as marked: Yes - Review of Systems Constitutional: absent: Fevers Cardiovascular: absent: Chest Pain Physical Exam - Physical Exam Narrative Physical Exam (Text): Gen: NAD Head: NC/AT Eyes: PERRL ENT: MMM Neck: Supple Chest: No tenderness CV: Regular rate Lungs: Mild expiratory wheezing diffusely Abd: Soft, NT Back: No CVA tenderness Extremities: L hand with dorsal erythema and edema with 2nd digit wound with small amount of pus expressed Skin: As above Neuro: Alert, no focal deficit Vital Signs Temp Pulse Resp BP Pulse Ox 07/09/18 20:46 85 18 138/74 97 07/09/18 19:56 97.8 F 89 22 140/86 97 Medical Decision Making ED Course and Treatment: EKG NSR 80 bpm, no ST/T wave changes. Vancomycin administered. Cultures drawn. Dr. Guerrier accepts to his service, recommends Surgery consultation with Dr. Henson. Stat Consult placed. - Lab Interpretations Lab Results: 07/09/18 21:00 07/09/18 21:00 Lab Results 07/09/18 21:00: Sodium 138, Potassium 3.7, Chloride 104, Carbon Dioxide 26, Anion Gap 12, BUN 16, Creatinine 0.7, Est GFR ( Amer) > 60, Est GFR (Non- Af Amer) > 60, Random Glucose 117 H, Calcium 9.2, Total Bilirubin 0.3, AST 113 H D, ALT 137 H, Alkaline Phosphatase 149 H D, Total Protein 7.6, Albumin 4.3, Globulin 3.3, Albumin/Globulin Ratio 1.3 07/09/18 21:00: PT 10.5, INR 0.92, APTT 28.4 07/09/18 21:00: WBC 12.8 H D, RBC 4.31, Hgb 12.4, Hct 36.9, MCV 85.6 D, MCH 28.8, MCHC 33.6, RDW 13.9, Plt Count 444, MPV 9.0, Gran % 53.1, Lymph % (Auto) 37.8 H, [place] % (Auto) 7.6 H, Eos % (Auto) 1.2 L, Baso % (Auto) 0.3, Gran # 6.79 H, Lymph # (Auto) 4.8 H, [place] # (Auto) 1.0 H, Eos # (Auto) 0.2, Baso # (Auto) 0.04, ESR Pending - RAD Interpretation Radiology Orders: 07/09/18 20:34 CHEST PORTABLE [RAD] Stat - Medication Orders Current Medication Orders: Bupropion HCl (Wellbutrin Xl) 300 mg PO QAM [facility] Escitalopram Oxalate (Lexapro) 20 mg PO DAILY [facility] Vancomycin HCl (Vancomycin 1gm) 1 gm in 250 mls @ 167 mls/hr IVPB STAT STA PRN Reason: Protocol Stop: 07/09/18 22:04 Oxycodone HCl (Oxycodone Immediate Release Tab) 10 mg PO Q6H PRN PRN Reason: Pain, severe (8-10) Discontinued Medications Albuterol/Ipratropium (Duoneb 3 Mg/0.5 Mg (3 Ml) Ud) 3 ml IH STAT STA Stop: 07/09/18 20:36 Sodium Chloride (Sodium Chloride 0.9%) 1,000 mls @ 999 mls/hr IV .Q1H1M STA Stop: 07/09/18 21:35 Disposition/Present on Arrival - Present on Arrival Any Indicators Present on Arrival: No History of DVT/PE: No History of Uncontrolled Diabetes: No Urinary Catheter: No History of Decub. Ulcer: No History Surgical Site Infection Following: None - Disposition Have Diagnosis and Disposition been Completed?: Yes Diagnosis: Cellulitis of hand Disposition: HOSPITALIZED Disposition Time: 21:59 Patient Plan: Admission Condition: GUARDED Referrals: Benjamin Ceballos MD [Primary Care Provider] - Follow up with primary Forms: [employer] (Frisian)
[2018-07-09 21:15] LABS: BASO # 0.04 K/mm3 (0.0-2.0); BASO % 0.3 % (0.0-3.0); EOS # 0.2 (0.0-0.7); EOS % 1.2 % (1.5-5.0); GRAN # 6.79 (1.4-6.5); GRAN % 53.1 % (50.0-68.0); HEMOGLOBIN 12.4 g/dL (12.0-16.0); LYMPH # 4.8 (1.2-3.4); LYMPH % 37.8 % (22.0-35.0); MEAN CELL VOLUME 85.6 fl (80.0-105.0); MEAN CORPUSCULAR HEMOGLOBIN 28.8 pg (25.0-35.0); MEAN CORPUSCULAR HGB CONC 33.6 g/dl (31.0-37.0); MONO % 7.6 % (1.0-6.0); RBC 4.31 10^6/uL (3.5-6.1); RED CELL DISTRIBUTION WIDTH 13.9 % (11.5-14.5); WHITE BLOOD COUNT 12.8 10^3/ul (4.5-11.0)
[2018-07-09 21:23] LABS: INR 0.92; PARTIAL THROMBOPLASTIN TIME 28.4 Seconds (25.1-36.5); PROTHROMBIN TIME 10.5 SECONDS (9.4-12.5)
[2018-07-09 21:26] LABS: ALB/GLOB RATIO 1.3 (1.1-1.8); ALBUMIN 4.3 g/dL (3.0-4.8); ALT/SGPT 137 U/L (7-56); AST/SGOT 113 U/L (14-36); BLOOD UREA NITROGEN 16 mg/dL (7-21); CALCIUM 9.2 mg/dL (8.4-10.5); GFR NON-AFRICAN AMERICAN > 60
[2018-07-09] MEDS ORDERED: oxyCODONE 10 mg Immediate Release Tab PO PRN (21:41)
[2018-07-09 22:24] LABS: PH,URINE 6.5 (4.7-8.0); URINE APPEARANCE CLEAR (CLEAR); URINE BILIRUBIN NEGATIVE (NEGATIVE); URINE BLOOD NEGATIVE (NEGATIVE); URINE COLOR LIGHT YELLOW (YELLOW); URINE GLUCOSE (UA) NEGATIVE (NEGATIVE); URINE LEUKOCYTE ESTERASE TRACE Leu/uL (NEGATIVE); URINE PROTEIN NEGATIVE mg/dL (<30 mg/dL); URINE UROBILINOGEN 0.2 E.U./dL (<1 E.U./dL)
[2018-07-09] MEDS ORDERED: Lidocaine 1% 5ml Abboject IJ STA (22:31)
[2018-07-09] MEDS ORDERED: Lidocaine 1% 5ml Abboject ONE (22:34)
[2018-07-09 22:35] LABS: URINE BACTERIA NEG (NEG); URINE EPITHELIAL CELLS 0 - 2 /hpf (0-5); URINE RBC 0 - 2 /hpf (0-2); URINE WBC 0 - 2 /hpf (0-6)
[2018-07-09] MEDS ORDERED: Morphine 2 mg/ml ISec IVP STA (23:28)
--- NOTE | 2018-07-10 01:32 | CP.PCM.CON ---
History of Present Illness - History of Present Illness History of Present Illness: General surgery and plastic surgery consult note for Dr. Henson and Dr. Black Consulted for: left index finger infection Patient is a 52F with PMH of crohns currently on steroids, COPD, and anxiety/depression who presented to the ED for worsening pain, swelling, and purulent drainage of the left index finger. 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 She noticed what she thought was a bug bite and put neosporin on it. Patient states that pain and swelling has been getting worse throughout the week and that today the swelling extending onto the dorsum of her hand and she was able t o express purulent fluid from the wound. Patient denies any numbness, tingling, weakness in the finger or the hand, fevers, or chills, or any other symptoms. She had no other lesions and this is the first time this has happened. PMH: crohns, emphysema, asthma, depression , anxiety PSH: R breast lumpectomy, BL salpingoopherectomy, partial bowel resection d/t necrosis, inguinal hernia repair, jaw excision/repair ALL: codeine Social: smokes 4 cigarettes/day--previously more, drinks occasionally, denies any drugs Review of Systems - Review of Systems All systems: reviewed and no additional remarkable complaints except (as per HPI ) Past Patient History - Infectious Disease Hx of Infectious Diseases: None - Past Medical History & Family History Past Medical History?: Yes Past Family History: Reviewed and not pertinent - Past Social History Smoking Status: Light Smoker < 10 Cigarettes Daily Alcohol: Occasional Drugs: Denies - CARDIAC Hx Cardiac Disorders: No Hx Hypertension: No - PULMONARY Hx Respiratory Disorders: Yes Hx Asthma: Yes Hx Emphysema: Yes - NEUROLOGICAL HX Cerebrovascular Accident: No Hx Seizures: No - HEENT Hx HEENT Problems: No - RENAL Hx Chronic Kidney Disease: No Hx Pyelonephritis: Yes - ENDOCRINE/METABOLIC Hx Endocrine Disorders: No - HEMATOLOGICAL/ONCOLOGICAL Hx Cancer: No - INTEGUMENTARY Hx Dermatological Problems: No - MUSCULOSKELETAL/RHEUMATOLOGICAL Hx Musculoskeletal Disorders: No Hx Falls: No - GASTROINTESTINAL Hx Crohn's Disease: Yes (dx 2006) - GENITOURINARY/GYNECOLOGICAL Hx Sexually Transmitted Disorders: No - PSYCHIATRIC Hx Anxiety: Yes Hx Depression: Yes Hx Panic Symptoms: Yes - SURGICAL HISTORY Hx Orthopedic Surgery: Yes Other/Comment: rt breast lumpectomy benign, ovarian surgery, r salpingoophorectomy, 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, 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, bakers tube - ANESTHESIA Hx Anesthesia: Yes Hx Anesthesia Reactions: No Meds Allergies/Adverse Reactions: Allergies Allergy/AdvReac Type Severity Reaction Status Date / Time codeine Allergy NAUSEA Verified 07/09/18 20:00 - Medications Medications: Current Medications Bupropion HCl (Wellbutrin Xl) 300 mg PO QAM [facility] Escitalopram Oxalate (Lexapro) 20 mg PO DAILY [facility] Ampicillin Sodium/Sulbactam (Sodium 3 gm/ Sodium Chloride) 100 mls @ 200 mls/hr IVPB Q6 [facility] PRN Reason: Protocol Last Admin: 07/10/18 00:21 Dose: 200 mls/hr Vancomycin HCl (Vancomycin 1gm) 1 gm in 250 mls @ 167 mls/hr IVPB Q12H [facility] PRN Reason: Protocol Doxycycline Hyclate 100 mg/ (Sodium Chloride) 100 mls @ 100 mls/hr IVPB Q12 [facility] PRN Reason: Protocol Last Admin: 07/10/18 01:04 Dose: 100 mls/hr Oxycodone HCl (Oxycodone Immediate Release Tab) 10 mg PO Q6H PRN PRN Reason: Pain, severe (8-10) Physical Exam - Constitutional Appears: Well, Non-toxic, No Acute Distress - Head Exam Head Exam: ATRAUMATIC, NORMOCEPHALIC - Eye Exam Eye Exam: Normal appearance. absent: Conjunctival injection, Scleral icterus - ENT Exam ENT Exam: Mucous Membranes Moist, Normal Oropharynx - Respiratory Exam Respiratory Exam: NORMAL BREATHING PATTERN. absent: Accessory Muscle Use, Respiratory Distress - Cardiovascular Exam Cardiovascular Exam: RRR - GI/Abdominal Exam GI & Abdominal Exam: Soft. absent: Distended - Extremities Exam Additional comments: left hand index finger with erythematous, raised lesion approximately 1cm across on the dorsal side of the proximal phalanx equidistant between the PIP joint and the MCP joint. Small amount of purulent drainage, erythema and mild edema extending onto the dorsum of the left hand 5/5 muscle strength of the second finger BL, gross neurovascular exam intact--normal capillary refill, normal opposition - Neurological Exam Neurological exam: Alert, Oriented x3 - Psychiatric Exam Psychiatric exam: Normal Affect, Normal Mood - Skin Skin Exam: Dry, Normal Color, Warm Results - Vital Signs Recent Vital Signs: Last Vital Signs Temp 97.8 F 07/09/18 19:56 Pulse 86 07/10/18 00:48 Resp 18 07/10/18 00:48 BP 135/80 07/10/18 00:48 Pulse Ox 98 07/10/18 00:48 - Labs Result Diagrams: 07/09/18 21:00 07/09/18 21:00 Assessment & Plan - Assessment and Plan (Free Text) Assessment: 52F with an abscess of the dorsum of the left index finger Plan: Dr. Black from plastic surgery consulted given the sensitive and complex nature of the hand abscess location incision and drainage performed at bedside with small amount of purulent fluid d rainage F/U wound culture F/U clinical exams Continue IV doxycycline PRN pain medication Keep hand elevated Further recommendations per Dr. Henson and Dr. Wayne Waters, PGY2
[2018-07-10 01:35] VITALS: RESP 20; BMI 27.4
--- NOTE | 2018-07-10 01:46 | PCM.PROC ---
- Incision & Drainage Of Abscess Anesthesia: Lidocaine 1% (digital block: 2cm injection of 1%lidocaine x2 in the BL volar base of the index finger of the left hand. 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 [employer] Prep Used: Betadine Procedure: Incised W/Scalpel Blade#: (11), Drained Pus, Probed To Break Up Loculations (probed in all directions for loculations, no major loculations discovered), Packed W/Gauze (1/4 inch iodoform gauze), Cultures Obtained And Sent To Lab (small amount of purulent drainage obtained) Additional Comments - Additional Comments Additional Comments: Written consent was obtained and witnessed by the nurse Time out was performed with the nurse present confirming patient's identity, allergies, procedure and locality of procedure Pre-op Dx: left index finger abscess Operative findings: small amount of purulent fluid Post-op dx: same EBL: 5cc's left hand was prepped and draped in a sterile fashion, nerve block was performed for the left index finger with 1% plain lidocaine. 1cm incision was made superficially with an #11 scalpel and loculations were explored with a clamp. Small amount of purulent fluid was encountered and cultured. Bleeding was adequately stopped with pressure and packing with 1/4" iodoform gauze. Patient tolerated the procedure well and had normal motor function and vascular supply to the finger when the procedure was completed.
[2018-07-10] MEDS ORDERED: oxyCODONE 5 mg Immediate Release Tab PO PRN (02:01)
--- NOTE | 2018-07-10 06:30 | CP.PCM.HP ---
<Rosalee Brooks - Last Filed: 07/10/18 14:00> History of Present Illness - History of Present Illness History of Present Illness: H&P for Gumaro Manuel PGY3 This is a 52yo female with past medical history of Crohn's (on Prednisone), COPD, anxiety/depression, chronic pain who came to ED for pain/swelling and drainage on L index finger x 1 week. Patient reports that 1 week ago she noticed an itching sensation on the back of her finger. She thought it was a bug bite and put neosporin on it. The pain and swelling got worse throughout the week and she started to noticed some purulent drainage from the area. She denies any recent travel or camping, chest pain, shortness of breath, fever/chills, nausea/vomiting/diarrhea, numbness/tingling, weakness, dysuria or hematuria. She denies any problems with moving her hand. She has never had an episode like this before. Past medical history: Crohn's (on Prednisone), COPD, anxiety/depression, chronic pain Past surgical history: R Breast lumpectomy (benign), R salpingoophrectomy, partial bowel resection Home meds: Reviewed as per MAR Allergies: codeine (nausea) Social history: Smokes 5 cig per day x >30yrs, denies ETOH use, Cocaine use in past but denies current use Family history: DM, Dad-CABG Present on Admission - Present on Admission Any Indicators Present on Admission: No Review of Systems - Review of Systems All systems: reviewed and no additional remarkable complaints except Review of Systems: 12 point ROS reviewed as per HPI and is otherwise negative. Past Patient History - Infectious Disease Hx of Infectious Diseases: None - Past Medical History & Family History Past Medical History?: Yes Past Family History: Reviewed and not pertinent - Past Social History Smoking Status: Light Smoker < 10 Cigarettes Daily Alcohol: Occasional Drugs: Denies - CARDIAC Hx Cardiac Disorders: No Hx Hypertension: No - PULMONARY Hx Respiratory Disorders: Yes Hx Asthma: Yes Hx Emphysema: Yes - NEUROLOGICAL HX Cerebrovascular Accident: No Hx Seizures: No - HEENT Hx HEENT Problems: No - RENAL Hx Chronic Kidney Disease: No Hx Pyelonephritis: Yes - ENDOCRINE/METABOLIC Hx Endocrine Disorders: No - HEMATOLOGICAL/ONCOLOGICAL Hx Cancer: No - INTEGUMENTARY Hx Dermatological Problems: No - MUSCULOSKELETAL/RHEUMATOLOGICAL Hx Musculoskeletal Disorders: No Hx Falls: No - GASTROINTESTINAL Hx Crohn's Disease: Yes (dx 2006) - GENITOURINARY/GYNECOLOGICAL Hx Sexually Transmitted Disorders: No - PSYCHIATRIC Hx Anxiety: Yes Hx Depression: Yes Hx Panic Symptoms: Yes - SURGICAL HISTORY Hx Orthopedic Surgery: Yes Other/Comment: rt breast lumpectomy benign, ovarian surgery, r salpingoophorectomy, 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, 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, bakers tube - ANESTHESIA Hx Anesthesia: Yes Hx Anesthesia Reactions: No Meds Home Medications: Home Medication List Medication Instructions Recorded Confirmed Type RX: Doxycycline Hyclate [Doryx] 100 mg PO BID 7 Days cap 07/10/18 Rx Allergies/Adverse Reactions: Allergies Allergy/AdvReac Type Severity Reaction Status Date / Time codeine Allergy NAUSEA Verified 07/09/18 20:00 Physical Exam - Constitutional Appears: No Acute Distress - Head Exam Head Exam: ATRAUMATIC, NORMAL INSPECTION, NORMOCEPHALIC - Eye Exam Eye Exam: Normal appearance, PERRL Pupil Exam: NORMAL ACCOMODATION, PERRL - ENT Exam ENT Exam: Mucous Membranes Moist - Respiratory Exam Respiratory Exam: Clear to Auscultation Bilateral, NORMAL BREATHING PATTERN. absent: Rales, Rhonchi, Wheezes - Cardiovascular Exam Cardiovascular Exam: REGULAR RHYTHM, +S1, +S2. absent: Gallop, Rubs, Systolic Murmur - GI/Abdominal Exam GI & Abdominal Exam: Normal Bowel Sounds, Soft. absent: Mass, Rebound, Rigid, Tenderness - Extremities Exam Extremities exam: Positive for: normal inspection. Negative for: calf tenderness, pedal edema Additional comments: L hand has dressing in place- clean and dry. - Neurological Exam Neurological exam: Alert, CN II-XII Intact, Oriented x3 - Psychiatric Exam Psychiatric exam: Normal Affect, Normal Mood - Skin Skin Exam: Dry, Warm Results - Vital Signs Recent Vital Signs: Last Vital Signs Temp 98.2 F 07/10/18 01:16 Pulse 20 L 07/10/18 01:16 Resp 20 07/10/18 01:16 BP 157/85 H 07/10/18 01:16 Pulse Ox 98 07/10/18 00:48 - Labs Result Diagrams: 07/09/18 21:00 07/09/18 21:00 Labs: Laboratory Results - last 24 hr 07/09/18 07/09/18 07/09/18 21:00 21:00 21:00 WBC 12.8 H D RBC 4.31 Hgb 12.4 Hct 36.9 MCV 85.6 D MCH 28.8 MCHC 33.6 RDW 13.9 Plt Count 444 MPV 9.0 Gran % 53.1 Lymph % (Auto) 37.8 H [place] % (Auto) 7.6 H Eos % (Auto) 1.2 L Baso % (Auto) 0.3 Gran # 6.79 H Lymph # (Auto) 4.8 H [place] # (Auto) 1.0 H Eos # (Auto) 0.2 Baso # (Auto) 0.04 ESR 27 H PT 10.5 INR 0.92 APTT 28.4 Sodium 138 Potassium 3.7 Chloride 104 Carbon Dioxide 26 Anion Gap 12 BUN 16 Creatinine 0.7 Est GFR ( Amer) > 60 Est GFR (Non-Af Amer) > 60 Random Glucose 117 H Calcium 9.2 Total Bilirubin 0.3 AST 113 H D ALT 137 H Alkaline Phosphatase 149 H D Total Protein 7.6 Albumin 4.3 Globulin 3.3 Albumin/Globulin Ratio 1.3 Urine Color Urine Appearance Urine pH Ur Specific [place] Urine Protein Urine Glucose (UA) Urine Ketones Urine Blood Urine Nitrate Urine Bilirubin Urine Urobilinogen Ur Leukocyte Esterase Urine RBC Urine WBC Ur Epithelial Cells Urine Bacteria 07/09/18 21:30 WBC RBC Hgb Hct MCV MCH MCHC RDW Plt Count MPV Gran % Lymph % (Auto) [place] % (Auto) Eos % (Auto) Baso % (Auto) Gran # Lymph # (Auto) [place] # (Auto) Eos # (Auto) Baso # (Auto) ESR PT INR APTT Sodium Potassium Chloride Carbon Dioxide Anion Gap BUN Creatinine Est GFR ( Amer) Est GFR (Non-Af Amer) Random Glucose Calcium Total Bilirubin AST ALT Alkaline Phosphatase Total Protein Albumin Globulin Albumin/Globulin Ratio Urine Color Light yellow Urine Appearance Clear Urine pH 6.5 Ur Specific [place] 1.010 Urine Protein Negative Urine Glucose (UA) Negative Urine Ketones Negative Urine Blood Negative Urine Nitrate Negative Urine Bilirubin Negative Urine Urobilinogen 0.2 Ur Leukocyte Esterase Trace H Urine RBC 0 - 2 Urine WBC 0 - 2 Ur Epithelial Cells 0 - 2 Urine Bacteria Neg Assessment & Plan - Assessment and Plan (Free Text) Assessment: This is a 52yo female with past medical history of Crohn's (on Prednisone), COPD, anxiety/depression, chronic pain who was admitted for 1. L index finger abscess - s/p I&D in ED 2. Crohn's disease 3. COPD 4. Depression/anxiety Plan: Patient had I&D in ED as per surgery. She is able to use hand without any is sues. Pain is controlled. Patient is stable and tolerating diet. She will be discharged home with PO Doxycyline BID for 1 week. She will follow up with Dr. Henson's office or [facility] for wound care. Recommend to follow up with PMD in 1 week upon discharge. She will continue her other home medication. Patient verbalized and agreed with discharge plan. Case seen, discussed and reviewed with Dr. Guerrier. Gumaro Brooks PGY3 - Date & Time Date: 07/10/18 Time: 14:24 <Rick Guerrier - Last Filed: 07/10/18 17:43> Results - Vital Signs Recent Vital Signs: Last Vital Signs Temp 98.3 F 07/10/18 06:00 Pulse 73 07/10/18 06:00 Resp 20 07/10/18 06:00 BP 124/81 07/10/18 06:00 Pulse Ox 96 07/10/18 06:00 - Labs Result Diagrams: 07/09/18 21:00 07/09/18 21:00 Labs: Laboratory Results - last 24 hr 07/09/18 07/09/18 07/09/18 21:00 21:00 21:00 WBC 12.8 H D RBC 4.31 Hgb 12.4 Hct 36.9 MCV 85.6 D MCH 28.8 MCHC 33.6 RDW 13.9 Plt Count 444 MPV 9.0 Gran % 53.1 Lymph % (Auto) 37.8 H [place] % (Auto) 7.6 H Eos % (Auto) 1.2 L Baso % (Auto) 0.3 Gran # 6.79 H Lymph # (Auto) 4.8 H [place] # (Auto) 1.0 H Eos # (Auto) 0.2 Baso # (Auto) 0.04 ESR 27 H PT 10.5 INR 0.92 APTT 28.4 Sodium 138 Potassium 3.7 Chloride 104 Carbon Dioxide 26 Anion Gap 12 BUN 16 Creatinine 0.7 Est GFR ( Amer) > 60 Est GFR (Non-Af Amer) > 60 Random Glucose 117 H Calcium 9.2 Total Bilirubin 0.3 AST 113 H D ALT 137 H Alkaline Phosphatase 149 H D C-React Prot High Sens Total Protein 7.6 Albumin 4.3 Globulin 3.3 Albumin/Globulin Ratio 1.3 Urine Color Urine Appearance Urine pH Ur Specific [place] Urine Protein Urine Glucose (UA) Urine Ketones Urine Blood Urine Nitrate Urine Bilirubin Urine Urobilinogen Ur Leukocyte Esterase Urine RBC Urine WBC Ur Epithelial Cells Urine Bacteria 07/09/18 07/09/18 21:00 21:30 WBC RBC Hgb Hct MCV MCH MCHC RDW Plt Count MPV Gran % Lymph % (Auto) [place] % (Auto) Eos % (Auto) Baso % (Auto) Gran # Lymph # (Auto) [place] # (Auto) Eos # (Auto) Baso # (Auto) ESR PT INR APTT Sodium Potassium Chloride Carbon Dioxide Anion Gap BUN Creatinine Est GFR ( Amer) Est GFR (Non-Af Amer) Random Glucose Calcium Total Bilirubin AST ALT Alkaline Phosphatase C-React Prot High Sens 13.50 H Total Protein Albumin Globulin Albumin/Globulin Ratio Urine Color Light yellow Urine Appearance Clear Urine pH 6.5 Ur Specific [place] 1.010 Urine Protein Negative Urine Glucose (UA) Negative Urine Ketones Negative Urine Blood Negative Urine Nitrate Negative Urine Bilirubin Negative Urine Urobilinogen 0.2 Ur Leukocyte Esterase Trace H Urine RBC 0 - 2 Urine WBC 0 - 2 Ur Epithelial Cells 0 - 2 Urine Bacteria Neg Assessment & Plan - Assessment and Plan (Free Text) Plan: Pt seen and examined. I have reviewed the note of the bilingual medical assistant and agree with it. I have discussed the assessment and plan with the resident. I have reviewed the patient's labs and medications. Pt had I and D of finger. She was given Doxycycline for possible MRSA. 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 I informed Dr Ceballos to f/u WCx results. Gave info if wound worsens, fever or erythema occur,then she should come back or call Dr Ceballos. Surgery saw pt. Will D/C home
--- NOTE | 2018-07-10 09:20 | CP.PCM.PN ---
Subjective - Date & Time of Evaluation Date of Evaluation: 07/10/18 Time of Evaluation: 09:15 - Subjective Subjective: General Surgery - Dr. Henson Pt S&E. GAVIN. Pt states her pain has improved, still with swelling of the L hand and wrist but redness improved. Dressing changed and packing removed from L finger s/p I&D. She denies any fevers/chills/sob/chest pain. Objective - Vital Signs/Intake and Output Vital Signs (last 24 hours): Temp Pulse Resp BP Pulse Ox 98.3 F 73 20 124/81 96 07/10/18 06:00 07/10/18 06:00 07/10/18 06:00 07/10/18 06:00 07/10/18 06:00 - Medications Medications: Current Medications Acetaminophen (Tylenol 325mg Tab) 650 mg PO Q6H PRN PRN Reason: Pain, moderate (4-7) Bupropion HCl (Wellbutrin Xl) 300 mg PO QAM TOMASZ Escitalopram Oxalate (Lexapro) 20 mg PO DAILY [facility] Ampicillin Sodium/Sulbactam (Sodium 3 gm/ Sodium Chloride) 100 mls @ 200 mls/hr IVPB Q6 TOMASZ; Protocol Last Admin: 07/10/18 06:47 Dose: 200 mls/hr Vancomycin HCl (Vancomycin 1gm) 1 gm in 250 mls @ 167 mls/hr IVPB Q12H TOMASZ; Protocol Doxycycline Hyclate 100 mg/ (Sodium Chloride) 100 mls @ 100 mls/hr IVPB Q12 TOMASZ ; Protocol Last Admin: 07/10/18 01:04 Dose: 100 mls/hr Oxycodone HCl (Oxycodone Immediate Release Tab) 5 mg PO Q6H PRN PRN Reason: Pain, severe (8-10) - Labs Labs: 07/09/18 21:00 07/09/18 21:00 PT 10.5 SECONDS (9.4-12.5) 07/09/18 21:00 INR 0.92 07/09/18 21:00 APTT 28.4 Seconds (25.1-36.5) 07/09/18 21:00 - Constitutional Appears: Well, No Acute Distress - Head Exam Head Exam: ATRAUMATIC, NORMAL INSPECTION, NORMOCEPHALIC - Eye Exam Eye Exam: Normal appearance - Respiratory Exam Respiratory Exam: NORMAL BREATHING PATTERN. absent: Respiratory Distress - Cardiovascular Exam Cardiovascular Exam: REGULAR RHYTHM - Extremities Exam Additional comments: L index finger s/p I&D mild erythema and swelling of the L hand, Packing removed, Dressing changed, C/D/I - Neurological Exam Neurological Exam: Alert, Oriented x3 - Psychiatric Exam Psychiatric exam: Normal Affect, Normal Mood - Skin Skin Exam: Dry, Intact Assessment and Plan - Assessment and Plan (Free Text) Assessment: 52 yo F w/ L hand cellulitis s/p insect bite to L index finger -Clear for D/C home from surgical standpoint -Continue Abx, hand elevation, and Daily dry gauze dressings -Pt february f/u with Dr. Henson in office or at the [facility] wound care clinic prn FIGUEROA Adan PGY4
--- NOTE | 2018-07-10 09:54 | CARD ---
APPROVED REPORT Date of service: 07/09/2018 EKG Measurement Heart [id number] <Conclusion> Normal sinus rhythm NSSTW changes
[2018-07-10] MEDS ORDERED: Vancomycin 1gm in NS 250ml 1 GM/250 ML BAG IVPB SCH (10:00)
[2018-07-10] MEDS ORDERED: buPROPion 300 mg/24 Hours XL Tab PO SCH (10:00)
--- NOTE | 2018-07-10 10:19 | RAD ---
HISTORY: hand infection COMPARISON: Chest xray performed 10/04/2017 TECHNIQUE: Chest, one view. FINDINGS: Examination limited by habitus. LUNGS: No focal consolidation. Please note that chest x-ray has limited sensitivity for the detection of pulmonary masses. PLEURA: No significant pleural effusion identified. No definite pneumothorax . CARDIOVASCULAR: The cardiomediastinal silhouette appears within normal limits of size. OSSEOUS STRUCTURES: No acute osseous abnormality identified. VISUALIZED UPPER ABDOMEN: Unremarkable. OTHER FINDINGS: None. IMPRESSION: No focal consolidation, significant pleural effusion, or definite pneumothorax identified.
[2018-07-10 11:08] VITALS: BP 124/81; PULSE 73; TEMP 98.3; O2SAT 96
== END 2018-07-10 10:00 | disposition home or self-care (01) ==
LOC: ED 17:01 → ERH 21:43 → INTOOBSV 21:43 → ERH 22:45 → 5RSO 07-10 00:37
PROVIDERS: ADMIT Internal Medicine Nephrology; ATTEND Internal Medicine Nephrology
DX: L02.512 Cutaneous abscess of left hand (principal); L03.114 Cellulitis of left upper limb; F41.0 Panic disorder [episodic paroxysmal anxiety]; J44.9 Chronic obstructive pulmonary disease, unspecified; F32.89 Other specified depressive episodes; K50.90 Crohn's disease, unspecified, without complications; F17.210 Nicotine dependence, cigarettes, uncomplicated; Z88.5 Allergy status to narcotic agent
CPT/HCPCS: 26010; 71045; 80053; 81001; 85025; 85610; 85651; 85730; 86140; 87040; 87070; 87086; 93005; 96365; 96366; 96367; 96375; 99285; G0378; J0295; J2270; J7030